=== PATIENT | female | born 1975 | race Caucasian/White ===

== ENCOUNTER 2019-08-09 11:52 | Outpatient (REF) | payer SELFPAY ==
[2019-08-09 12:24] LABS: Cholesterol 207 mg/dL (0-200); Glucose 107 mg/dL (65-115); HDL Cholesterol 46 mg/dL (60-100); LDL Cholesterol Calculated 131 mg/dL (50-129); LDL HDL Ratio 2.85 RATIO (0.00-3.22); Triglycerides 151 mg/dL (0-150)
[2019-08-09 13:01] LABS: Estmated Average Glucose 108; Hemoglobin A1C 5.4 % (4.0-6.0)
== END 2019-08-09 11:53 | disposition home or self-care (01) ==
LOC: LAB 11:52
PROVIDERS: Family Provider Family Medicine
DX: Z01.89 Encounter for other specified special examinations (principal)
CPT/HCPCS: 80061; 82947; 83036

== ENCOUNTER 2021-01-21 08:17 | Outpatient (CLI) | payer OTHER, SELFPAY ==
--- NOTE | 2021-01-21 08:24 | MM_ITS ---
WS: [id number] BILATERAL DIGITAL SCREENING MAMMOGRAPHY WITH CAD CLINICAL INFORMATION: SCREENING HISTORY: Screening mammogram. No current complaints. COMPARISON: TECHNIQUE: Bilateral CC and MLO views. FINDINGS: Scattered fibroglandular densities bilaterally. No suspicious focal mass, asymmetry, calcifications, or architectural distortion. No evidence of malignancy. Lucent centered calcification right breast. I ncidental intramammary lymph node right breast. MM/[place] [id number] IMPRESSION: BI-RADS: 2-Benign FOLLOW UP: 1 Year Follow-up Recommend return to annual screening mammography.
== END 2021-01-21 08:18 | disposition home or self-care (01) ==
LOC: RADSHAW 08:20
PROVIDERS: PCP Nurse Practitioner Family; Visit Provider Nurse Practitioner Family
DX: Z12.31 Encounter for screening mammogram for malignant neoplasm of breast (principal)
CPT/HCPCS: 77067

== ENCOUNTER 2022-01-29 11:26 | Outpatient (CLI) | payer OTHER, SELFPAY ==
--- NOTE | 2022-01-29 11:35 | MM_ITS ---
WS: [id number] Exam: [id number] Date/Time of Exam: 01/29/2022 11:35 AM Reason For Exam: SCREENING VIEWS: MLO and CC views both breasts. 3D digital tomosynthesis is also included in this exam. Comparison made with prior exam of 02/04/2009, 03/29/2018, 10/10/2018, 01/21/2021.. Findings: There was no sign of mass, architectural distortion or suspicious calcification in either breast. MM/[place] [id number] Impression: BI-RADS: 2-Benign FOLLOW-UP: 1 Year Follow-up This mammogram was also analyzed by the Computer Aided Detection System R2 Imag e News Wire Photo Operator.
== END 2022-01-29 11:27 | disposition home or self-care (01) ==
LOC: RAD 11:28
PROVIDERS: PCP Nurse Practitioner Family; Visit Provider Nurse Practitioner Family
DX: Z12.31 Encounter for screening mammogram for malignant neoplasm of breast (principal)
CPT/HCPCS: 77063; 77067

== ENCOUNTER 2023-01-31 07:26 | Outpatient (CLI) | payer OTHER, BC, SELFPAY ==
--- NOTE | 2023-01-31 07:44 | MM_ITS ---
WS: [id number] SCREENING DIGITAL TOMOSYNTHESIS MAMMOGRAM WITH CAD HISTORY: SCREENING COMPARISON: 01/29/2022, 01/21/2021 Bilateral CC and MLO with tomosynthesis views submitted. Synthetic mammography reviewed. Computer aid ed detection analyzed. Breast composition: There are scattered areas of fibroglandular density. No suspicious masses, microc alcifications or architectural distortion. Benign intramammary lymph node RIGHT axillary tail. MM/[place] [id number] IMPRESSION: BI-RADS: 2-Benign FOLLOW UP: 1 Year Follow-up
== END 2023-01-31 07:27 | disposition home or self-care (01) ==
PROVIDERS: PCP Nurse Practitioner Family; Visit Provider Nurse Practitioner Family
DX: Z12.31 Encounter for screening mammogram for malignant neoplasm of breast (principal)
CPT/HCPCS: 77063; 77067

== ENCOUNTER 2023-11-07 08:43 | Emergency (ER) | payer BC, SELFPAY ==
[2023-11-07] VITALS (45 sets, daily range): BP systolic 120–155; BP diastolic 79–97; PULSE 76–108; RESP 12–30; TEMP 37.3; O2SAT 91–98; BMI 47.7
--- NOTE | 2023-11-07 09:09 | ECG_ITS ---
[facility] Test Date: 2023-11-07 Pat Name: Karoline Gaines Department: Room: Gender: Female Appeals Manager: : 1975 Requested By: Conor Cruz Order Number: [id number] Ayan MD: Boogie Viera M.D. Measurements Intervals [place] Rate: 103 P: 59 MN: 178 QRS: 59 QRSD: 109 T: 74 QT: 340 QTc: 446 Interpretive Statements SINUS TACHYCARDIA INCOMPLETE RIGHT BUNDLE BRANCH BLOCK [90+ ms QRS DURATION, TERMINAL R IN V1/V2, 40+ ms S IN I/aVL/V4/V5/V6] ABNORMAL RHYTHM ECG No previous ECG available for comparison Electronically Signed On 11-07-2023 10:54:17 CDT by Boogie Viera M.D. [email or web address] [email or web address] Companytallahat[facility] hospitalSt[facility].[employer]/store/NU/[id number] f
--- NOTE | 2023-11-07 09:13 | ED_ITS ---
HPI - Dizziness 2 General: Chief Complaint: Dizziness Stated Complaint: chest pain, dizzy, N Time Seen by Provider: 11/07/23 08:50 Source: patient Mode of arrival: ambulatory History of Present Illness: HPI Narrative: 48-year-old female presents emergency ro om complaining getting dizziness headache and some chest discomfort shortly after arriving at work. She can reproduce the dizziness by turning her head to the right or tipping her head back. She has had this in the past as well. No recent head trauma or falls no chest pain at this time. Previous episode associated with an ear infection MD elicited complaint: dizziness Onset (ago): minute(s) Description: room spinning Context: change in body position (Moving head to the right or tipping head back) Exacerbating factors: change in body position Associated symptoms: Reports chest pain, headache(s) and malaise; Denies change in hearing, chills, cough, diaphoresis, ear discharge, ear pressure, fevers/chills, nausea, nasal congestion, palpitations, rash, short of breath, syncope, tinnitus, vomiting or weakness Review of Systems 2 Const: Reports: malaise; Denies: fever(s), chills or diaphoresis ENMT: Denies: ear discharge, change in hearing, tinnitus or nasal congestion Card: Reports: chest pain; Denies: palpitations or syncope Resp: Denies: dyspnea GI: Denies: abdominal pain, nausea or vomiting : Denies: dysuria, urinary frequency or urinary urgency Musc: Denies: neck pain or back pain Skin/Breast: Denies: rash Neuro: Reports: headache(s) and dizziness Physical Exam 2 Const: COMMON NORMALS: no acute distress GENERAL APPEARANCE: cooperative and comfortable ORIENTATION/CONSCIOUSNESS: Yes awake, Yes oriented to person, Yes oriented to place and Yes oriented to time HENMT: COMMON NORMALS: normocephalic, atraumatic and hearing grossly normal bilaterally HEAD & SCALP: normocephalic and atraumatic Resp: COMMON NORMALS: normal respiratory effort, No retractions, No use of accessory muscles and clear to auscultation bilaterally AUSCULTATION: clear to auscultation bilaterally Cardio: COMMON NORMALS: regular rate, regular rhythm and No murmurs present (Cardio) RATE: regular rate RHYTHM: regular rhythm GI: COMMON NORMALS: Soft to palpation and No hepatosplenomegaly present A USCULTATION: Yes normoactive bowel sounds PALPATION: Yes Soft to palpation, No Tenderness to palpation present (GI), No Guarding due to palpation present (GI) and Yes No hepatosplenomegaly present Extremity: COMMON NORMALS: normal to inspection, capillary refill normal, no clubbing, cyanosis or edema, no calf tenderness and no pedal edema Neuro: SENSORIUM/ORIENTATION: Yes oriented to person, Yes oriented to place and Yes oriented to time Skin: COMMON NORMALS: no rashes or lesions noted GENERAL SKIN EXAM: no rashes or lesions noted Course 2 Vital Signs: Vital signs: Vital Signs Temperature 99.2 F 11/07/23 08:50 Pulse Rate 79 11/07/23 12:40 Respiratory Rate 20 H 11/07/23 11:10 Blood Pressure 154/89 11/07/23 12:40 Pulse Oximetry 95 11/07/23 12:40 Oxygen Delivery Me thod Room Air 11/07/23 12:40 MDM - Dizziness Medical Decision Making Cardiac enzymes unremarkable EKG shows no acute changes. Symptoms reproducible with extension at the neck or rotation to the right. Somewhat improved from when she first arrived. Will discharge patient home with meclizine to use as needed if symptoms persist follow-up with primary care. Medical Records I reviewed the patient's medical records. Lab Data I reviewed the patient's lab results. 11/07/23 09:05 11/07/23 09:05 Laboratory Results WBC 11.36 10^3/uL (3.29-11.43) 11/07/23 09:05 RBC 5.00 10^6/uL (3.85-5.65) 11/07/23 09:05 Hgb 14.30 g/dL (11.27-16.99) 11/07/23 09:05 Hct 43.3 % (36-47) 11/07/23 09:05 MCV 86.6 fl (85-98) 11/07/23 09:05 MCH 28.6 pg (27-33) 11/07/23 09:05 MCHC 33.0 g/dL (30-55) 11/07/23 09:05 RDW 13.6 % (12.1-15.1) 11/07/23 09:05 Plt Count 271 10^3/cmm (157-399) 11/07/23 09:05 MPV 10.0 fL (7.4-10.4) 11/07/23 09:05 Neut % (Auto) 64.5 % 11/07/23 09:05 Lymph % (Auto) 26.1 % 11/07/23 09:05 Rogers % (Auto) 5.5 % 11/07/23 09:05 Eos % (Auto) 3.0 % 11/07/23 09:05 Baso % (Auto) 0.4 % 11/07/23 09:05 Neut # (Auto) 7.33 10^3/uL (1.8-7.7) 11/07/23 09:05 Lymph # (Auto) 3.0 10^3/uL (0.8-4.8) 11/07/23 09:05 Rogers # (Auto) 0.6 10^3/uL (0.2-0.9) 11/07/23 09:05 Eos # (Auto) 0.3 10^3/uL (0.0-0.8) 11/07/23 09:05 Baso # (Auto) 0.1 10^3/uL (0.0-0.1) 11/07/23 09:05 Nucleated RBC % (auto) 0 % 11/07/23 09:05 Nucleated RBCs # 0.0 /100WBC 11/07/23 09:05 Sodium 138 mmol/L (136-145) 11/07/23 09:05 Potassium 3.4 mmol/L (3.5-5.1) L 11/07/23 09:05 Chloride 101 mmol/L (98-107) 11/07/23 09:05 Carbon Dioxide 25 mmol/L (22-29) 11/07/23 09:05 Anion Gap 15.4 (5-19) 11/07/23 09:05 BUN 14 mg/dL (6-20) 11/07/23 09:05 Creatinine 0.7 mg/dL (0.5-0.9) 11/07/23 09:05 GFR Calculation 89.3 mL/min (90-130) L 11/07/23 09:05 Glucose 106 mg/dL (65-115) 11/07/23 09:05 Calculated Osmolality 287 mOsm/kg (285-295) 11/07/23 09:05 Calcium 9.2 mg/dL (8.5-10.5) 11/07/23 09:05 Total Bilirubin 0.2 mg/dL (0.15-1.2) 11/07/23 09:05 AST 12 U/L (0-32) 11/07/23 09:05 ALT 15 U/L (0-33) 11/07/23 09:05 Alkaline Phosphatase 73 U/L (35-105) 11/07/23 09:05 Troponin T Baseline < 6 ng/L (0-10) 11/07/23 09:05 Troponin T 120 Minute 7.32 ng/L (0-10) 11/07/23 10:40 Delta Troponin T 1.04194 ABS# (0-10) 11/07/23 10:40 Total Protein 6.8 g/dL (6.6-8.7) 11/07/23 09:05 Albumin 3.9 g/dL (3.5-5.2) 11/07/23 09:05 Globulin 2.9 g/dL (1.3-4.6) 11/07/23 09:05 Lipase 30 U/L (13-60) 11/07/23 09:05 Urine Color Straw (Yellow) 11/07/23 07:26 Urine Appearance Hazy (CLEAR) A 11/07/23 07:26 Urine pH 5 (5-7) 11/07/23 07:26 Ur Specific [place] 1.010 (1.005-1.030) 11/07/23 07:26 Urine Protein Neg (Negative) 11/07/23 07:26 Urine Glucose (UA) Norm (Normal) 11/07/23 07:26 Urine Ketones Negative (Negative) 11/07/23 07:26 Urine Blood Neg (Negative) 11/07/23 07:26 Urine Nitrate Negative (Negative) 11/07/23 07:26 Urine Bilirubin Neg (Negative) 11/07/23 07:26 Urine Urobilinogen Norm mg/dL (Negative) 11/07/23 07:26 Ur Leukocyte Esterase Negative (Negative) 11/07/23 07:26 Urine RBC None /hpf (0-2) 11/07/23 07:26 Urine WBC 0-4 /hpf (0-5) H 11/07/23 07:26 Ur Squamous Epith Cells 0-4 /hpf (0-5) H 11/07/23 07:26 Amorphous Sediment Not Reportable 11/07/23 07:26 Urine Bacteria 1+ /hpf (NONE) H 11/07/23 07:26 No radiology studies performed this visit Discharge Plan Discharge Patient Disposition: Home Clinical Impression: Benign paroxysmal positional vertigo Condition: Stable Prescriptions: New meclizine 25 mg tablet 25 mg PO QID PRN (Reason: dizziness) Qty: 20 0RF No Action multivitamin Tablet 1 tab PO QAM Zyrtec 10 mg Tablet 10 mg PO QAM lisinopril-hydrochlorothiazide 20-25 mg tablet 1 tab PO QAM Discharge Orders: Discharge ED (Routine); Ordered 11/07/23 Ordered By: Conor Hope Referrals: Justyna Jackson FNP [Primary Care Provider] - Discharge Diet: Usual diet Discharge Activity: Increase activity as tolerated Patient Instructions: Benign Paroxysmal Positional Vertigo (ED), Opioid Safety, Pain Management Activity Restrictions/Additional Instructions: Thank you for choosing [facility] for your healthcare needs today. Please realize this is an emergency room and that we are providing you with a medical screening exam and this may not be complete and all inclusive of all the testing and or work up that you may need to determine your ailment or severity of your illness. It is very important that you follow up as instructed or that you return to the Emergency Department should you have concerns or if your condition changes or worsens in any way. Follow-up with your primary care doctor as needed Coding Level of Care Code ED Aquatic Physiotherapist for Trae Angeles
[2023-11-07 09:16] LABS: Basophils # 0.1 10^3/uL (0.0-0.1); Basophils % 0.4 %; Eosinophils # 0.3 10^3/uL (0.0-0.8); Hematocrit 43.3 % (36-47); Lymphocytes % 26.1 %; Mean Corpuscular Hemoglobin 28.6 pg (27-33); Mean Corpuscular Volume 86.6 fl (85-98); Monocytes # 0.6 10^3/uL (0.2-0.9); Monocytes % 5.5 %; Neutrophils # 7.33 10^3/uL (1.8-7.7); Neutrophils % 64.5 %; Nucleated Red Blood Cells % 0 %; Platelet Count 271 10^3/cmm (157-399); Red Cell Distribution Width 13.6 % (12.1-15.1); White Blood Count 11.36 10^3/uL (3.29-11.43)
[2023-11-07] MEDS: aspirin 81 mg Chew Tablet 324 MG PO (09:20)
[2023-11-07 09:32] LABS: Alanine Aminotransferase 15 U/L (0-33); Albumin Level 3.9 g/dL (3.5-5.2); Alkaline Phosphatase 73 U/L (35-105); Anion Gap 15.4 (5-19); Aspartate Amino Transferase 12 U/L (0-32); Blood Urea Nitrogen 14 mg/dL (6-20); Calcium 9.2 mg/dL (8.5-10.5); Carbon Dioxide 25 mmol/L (22-29); Chloride 101 mmol/L (98-107); Creatinine Clr Calc Pharmacy 147.8836; Globulin 2.9 g/dL (1.3-4.6); Glomerular Filtration Rate 89.3 mL/min (90-130); Glucose 106 mg/dL (65-115); Lipase 30 U/L (13-60); Osmolality Calculated 287 mOsm/kg (285-295); Potassium 3.4 mmol/L (3.5-5.1); Sodium 138 mmol/L (136-145); Total Bilirubin 0.2 mg/dL (0.15-1.2); Total Protein 6.8 g/dL (6.6-8.7); Troponin(5th) Baseline < 6 ng/L (0-10)
[2023-11-07 10:28] LABS: Urine Appearance Hazy (CLEAR); Urine Color Straw (Yellow)
[2023-11-07 10:29] LABS: Add Urine Microscopic? YES; Bacteria Urine 1+ /hpf; Bilirubin Urine Neg (Negative); Blood Urine Neg (Negative); Glucose Urine UA Norm (Normal); Ketones Urine Negative (Negative); Leukocyte Esterase Urine Negative (Negative); Nitrate Urine Negative (Negative); Protein Urine Neg (Negative); Squamous Epithelial Cell Urine 0-4 /hpf (0-5); Urobilinogen Urine Norm (Negative); WBC Urine 0-4 /hpf (0-5); pH Urine 5 (5-7)
[2023-11-07 10:31] LABS: Add Urine Culture? No
--- NOTE | 2023-11-07 10:35 | PC.PHAR ---
pt states she takes care of her own medications-pt states she hasnt taken montelukast 10mg daily for a month ext shows last filled 08/02/23
--- NOTE | 2023-11-07 11:10 | ECG_ITS ---
[facility] Test Date: 2023-11-07 Pat Name: Karoline Gaines Department: Room: Gender: Female Java Swing Developer: : 1975 Requested By: Conor Cruz Order Number: [id number] Ayan MD: Boogie Viera M.D. Measurements Intervals [place] Rate: 78 P: 61 NC: 172 QRS: 47 QRSD: 101 T: 64 QT: 368 QTc: 421 Interpretive Statements SINUS RHYTHM POSSIBLE RIGHT VENTRICULAR CONDUCTION DELAY [RSR (QR) IN V1/V2] Compared to ECG 11/07/2023 08:50:09 Sinus tachycardia no longer present Incomplete right bundle-branch block no longer present Electronically Signed On 11-07-2023 23:25:23 CDT by Boogie Viera M.D. [email or web address]/store/[id number]
[2023-11-07] MEDS: meclizine 25 mg tablet PO (11:54)
[2023-11-07 12:03] LABS: Troponin 5 2HR 7.32 ng/L (0-10); Troponin 5 2HR Delta 1.32001 ABS# (0-10)
== END 2023-11-07 12:46 | disposition home or self-care (01) ==
PROVIDERS: Emergency Provider Family Medicine; PCP Nurse Practitioner Family
DX: H81.10 Benign paroxysmal vertigo, unspecified ear (principal)
CPT/HCPCS: 80053; 81001; 83690; 84484; 85025; 93005; 99284; J8597

== ENCOUNTER 2024-03-29 09:51 | Outpatient (CLI) | payer BC, SELFPAY ==
--- NOTE | 2024-03-29 09:53 | MM_ITS ---
WS: [id number] Bilateral screening 3D tomosynthesis digital mammogram, 03/29/2024 9:58 AM Clinical Data: SCREENING Comparison: 01/31/2023, 01/29/2022, 01/21/2021, 03/07/2019, 03/29/2018, 05/14/2009, 02/04/2009. Findings: No spiculated masses or clustered calcifications are seen. There are no secondary signs of carcinoma . There is scattered fibroglandular tissue. There are lymph nodes in both axilla. MM/MM [facility] tomosynthesis [id number] Impression: Negative bilateral mammogram unchanged. Recommend annual screening mammograms. BIRADS: 1 - Negative. FOLLOW UP: 1 Year Follow-up DENSITY: There are scattered areas of fibroglandular density. The CAD dead mail checker was used
== END 2024-03-29 09:52 | disposition home or self-care (01) ==
LOC: RAD 09:52
PROVIDERS: PCP Nurse Practitioner Family; Visit Provider Nurse Practitioner Family
DX: Z12.31 Encounter for screening mammogram for malignant neoplasm of breast (principal); R92.323 Mammographic fibroglandular density, bilateral breasts
CPT/HCPCS: 77063; 77067

== ENCOUNTER 2025-04-01 08:13 | Outpatient (CLI) | payer BC, SELFPAY ==
--- NOTE | 2025-04-01 08:20 | MM_ITS ---
WS: [id number] BILATERAL SCREENING DIGITAL TOMOSYNTHESIS MAMMOGRAM WITH CAD HISTORY: SCREENING COMPARISON: 03/29/2024, 01/31/2023, 01/29/2022 Bilateral CC and MLO views with tomosynthesis and synthetic mammography submitted. Computer aided detection analyzed. Breast composition: There are scattered areas of fibroglandular density. No suspicious masses, microcalcifications or architectural distortion. Benign calcifications. No suspicious grouping of calcification. MM/MM scr tomosynthesis [id number] IMPRESSION: BI-RADS: 2 - Benign. FOLLOW UP: 1 Year Follow-up
== END 2025-04-01 08:14 | disposition home or self-care (01) ==
LOC: RAD 08:14
PROVIDERS: PCP Nurse Practitioner Family; Visit Provider Nurse Practitioner Family
DX: Z12.31 Encounter for screening mammogram for malignant neoplasm of breast (principal); R92.323 Mammographic fibroglandular density, bilateral breasts; R92.1 Mammographic calcification found on diagnostic imaging of breast
CPT/HCPCS: 77063; 77067

== ENCOUNTER 2025-06-14 15:31 | Emergency (ER) | payer BC, SELFPAY ==
--- NOTE | 2025-06-14 15:36 | ECG_ITS ---
[facility] Test Date: 2025-06-14 Pat Name: Karoline Gaines Department: Room: Gender: Female Sketch Liner: : 1975 Requested By: Mary Carmen Cruz Order Number: [id number] Ayan MD: RICAHRD INGRAM Measurements Intervals [place] Rate: 112 P: 59 [place]: 152 QRS: 63 QRSD: 108 T: 72 QT: 321 QTc: 440 Interpretive Statements SINUS TACHYCARDIA INCOMPLETE RIGHT BUNDLE BRANCH BLOCK [90+ ms QRS DURATION, TERMINAL R IN V1/V2, 40+ ms S IN I/aVL/V4/V5/V6] ABNORMAL RHYTHM ECG Compared to ECG 11/07/2023 11:10:45 Incomplete right bundle-branch block now present Sinus rhythm no longer present Electronically Signed On 06-14-2025 18:28:42 REFRIGERATION MANAGER by RICHARD INGRAM [id number]
[2025-06-14 15:40] VITALS: BP 184/90; PULSE 109; RESP 16; TEMP 37.4; O2SAT 98; BMI 49.6
--- NOTE | 2025-06-14 15:45 | ECG_ITS ---
[facility] Test Date: 2025-06-14 Pat Name: Karoline Gaines Department: Room: Gender: Female Theater Set Production Designer: : 1975 Requested By: Mary Carmen Cruz Order Number: [id number] Ayan MD: RICHARD INGRAM Measurements Intervals [place] Rate: 112 P: 59 [place]: 152 QRS: 63 QRSD: 108 T: 72 QT: 321 QTc: 440 Interpretive Statements SINUS TACHYCARDIA INCOMPLETE RIGHT BUNDLE BRANCH BLOCK [90+ ms QRS DURATION, TERMINAL R IN V1/V2, 40+ ms S IN I/aVL/V4/V5/V6] ABNORMAL RHYTHM ECG Compared to ECG 11/07/2023 11:10:45 Incomplete right bundle-branch block now present Sinus rhythm no longer present Electronically Signed On 06-14-2025 18:28:39 BITUMINOUS PAVING MACHINE OPERATOR by RICHARD INGRAM [id number]
--- NOTE | 2025-06-14 16:15 | XRR_ITS ---
PROCEDURE INFORMATION: Exam: XR Chest Exam date and time: 06/14/2025 4:22 PM Age: 50 years old Clinical indication: Pain; Angina pectoris; Additional info: Chest pain TECHNIQUE: Imaging protocol: Radiologic exam of the chest. Views: 1 view. COMPARISON: CR XR chest 2V* [id number] 08/25/2021 4:44 PM FINDINGS: Lungs: No infiltrates. No suspicious masses or nodules. Pleural spaces: No pleural effusions or pneumothorax. Heart/Mediastinum: Heart size within normal limits. No pulmonary vascular congestion. Bones/joints: No significant osseous lesion. No fractures. XR/XR chest 1V portable [id number] IMPRESSION: No acute cardiopulmonary findings radiographically.
--- NOTE | 2025-06-14 17:04 | ED_ITS ---
HPI - Chest Pain 2 General: Chief Complaint: Chest Pain Stated Complaint: chest pain Time Seen by Provider: 06/14/25 16:45 History of Present Illness: Patient is 50-year-old female with history of hypertension, presents to the emergency room with chest pain/discomfort. Context: Patient did take her lisinopril/hydrochlorothiazide this a.m. She went to lunch with her friend approximately 1230. Approximately 2 PM, she started having chest pressure/discomfort in the central and left area of her chest associated with shortness of breath, and hard to get her breath. She has associated symptoms of palpitations. Heart rate in the ED is 109?112. EKG shows sinus tachycardia without ST segment elevation. She is did not have any diaphoresis, nausea, vomiting. She does have a history of ongoing sinusitis that is treated with its third round of antibiotics, the third round that she received today from [facility]. Other than this, she has not had any upper respiratory or shortness of breath symptoms. She believes her shortness of breath was associated with the chest discomfort. She was standing and talking to her friend at the time and occurred today. She does not currently have any active chest discomfort. She denies any previous history of cardiac event, and has not had a stress test. Associated symptoms: Reports dyspnea; Deny abdominal pain, diaphoresis, fever(s), nausea, palpitations, syncope or vomiting Related Data Home Medications ?Medication ?Instructions ?Recorded ?Confirmed cetirizine 10 mg tablet (Zyrtec) 10 mg PO QAM 11/07/23 11/07/23 lisinopril 20 1 tab PO QAM 11/07/23 mg-hydrochlorothiazide 25 mg tablet multivitamin 1 tab PO QAM 11/07/23 Previous Rx's ?Medication ?Instructions ?Recorded meclizine 25 mg tablet 25 mg PO QID PRN dizziness # 20 tabs 11/07/23 Allergies Allergy/AdvReac Type Severity Reaction Status Date / Time acetaminophen (From Tylenol) Allergy ALGY-Hives Verified 06/14/25 15:46 Cephalosporins Allergy Unknown Verified 11/07/23 08:58 morphine Allergy ADR-Vomitin Verified 11/07/23 08:56 g Penicillins Allergy Unknown Verified 11/07/23 10:34 Review of Systems 2 Const: Reports: malaise; Denies: fever(s), chills or diaphoresis ENMT: Reports: sinus pain (Addressed by Giles Grossman earlier today); Denies: throat pain, ear discharge, change in hearing, tinnitus or nasal congestion Card: Reports: chest pain; Denies: palpitations or syncope Resp: Reports: dyspnea; Denies: non-productive cough GI: Denies: abdominal pain, nausea or vomiting : Denies: dysuria, urinary frequency or urinary urgency Musc: Denies: neck pain or back pain Skin/Breast: Denies: rash Neuro: Reports: headache(s) and dizziness PFSH ED 2 PFSH: Social History Smoking and tobacco/nicotine status: never used tobacco/nicotine Physical Exam 2 Const: COMMON NORMALS: no acute distress GENERAL APPEARANCE: cooperative and comfortable ORIENTATION/CONSCIOUSNESS: Yes awake, Yes oriented to person, Yes oriented to place and Yes oriented to time HENMT: COMMON NORMALS: normocephalic, atraumatic and hearing grossly normal bilaterally HEAD & SCALP: normocephalic and atraumatic Resp: COMMON NORMALS: normal respiratory effort, No retractions, No use of accessory muscles and clear to auscultation bilaterally AUSCULTATION: clear to auscultation bilaterally Cardio: COMMON NORMALS: regular rate, regular rhythm and No murmurs present (Cardio) RATE: regular rate RHYTHM: regular rhythm GI: COMMON NORMALS: Soft to palpation and No hepatosplenomegaly present A USCULTATION: Yes normoactive bowel sounds PALPATION: Yes Soft to palpation, No Tenderness to palpation present (GI), No Guarding due to palpation present (GI) and Yes No hepatosplenomegaly present Extremity: COMMON NORMALS: normal to inspection, capillary refill normal, no clubbing, cyanosis or edema, no calf tenderness and no pedal edema Neuro: SENSORIUM/ORIENTATION: Yes oriented to person, Yes oriented to place and Yes oriented to time Skin: COMMON NORMALS: no rashes or lesions noted GENERAL SKIN EXAM: no rashes or lesions noted Course 2 Vital Signs: Vital signs: Vital Signs Temperature 99.3 F 06/14/25 15:40 Pulse Rate 109 H 06/14/25 18:17 Respiratory Rate 17 06/14/25 18:17 Blood Pressure 165/94 06/14/25 18:17 Pulse Oximetry 95 06/14/25 18:17 Oxygen Delivery Me thod Room Air 06/14/25 15:40 MDM - Chest Pain Medical Decision Making 50-year-old female that presents to the emergency room with chest pressure in her left side of her chest, and central chest. This was associated with shortness of breath. Initial rule out after this occurred over 2 hours was negative. I do believe patient has significant risk factors. Creatinine is mildly elevated at 1.0 with baseline 0.7. Her palpitations could be a result of mild dehydration. She did have tea for lunch. However given her risk factors, father at age 50 with LA, mom was at age 70 with LA, status post hysterectomy, I will refer her to cardiology for ischemic rule out. Differential Diagnosis Likely acute myocardial infarction Medical Records I reviewed the patient's medical records. Lab Data I reviewed the patient's lab results. 06/14/25 16:55 06/14/25 16:55 Radiology Impressions Chest X-Ray 06/14/25 16:15 IMPRESSION: No acute cardiopulmonary findings radiographically. Laboratory Results WBC 13.54 10^3/uL (3.29-11.43) H 06/14/25 16:55 RBC 5.01 10^6/uL (3.85-5.65) 06/14/25 16:55 Hgb 13.60 g/dL (11.27-16.99) 06/14/25 16:55 Hct 42.9 % (36-47) 06/14/25 16:55 MCV 85.6 fl (85-98) 06/14/25 16:55 MCH 27.1 pg (27-33) 06/14/25 16:55 MCHC 31.7 g/dL (30-55) 06/14/25 16:55 RDW 13.8 % (12.1-15.1) 06/14/25 16:55 Plt Count 304 10^3/cmm (157-399) 06/14/25 16:55 MPV 9.9 fL (7.4-10.4) 06/14/25 16:55 Neut % (Auto) 71.4 % 06/14/25 16:55 Lymph % (Auto) 19.4 % 06/14/25 16:55 [place] % (Auto) 6.5 % 06/14/25 16:55 Eos % (Auto) 1.9 % 06/14/25 16:55 Baso % (Auto) 0.4 % 06/14/25 16:55 Neut # (Auto) 9.66 10^3/uL (1.8-7.7) H 06/14/25 16:55 Lymph # (Auto) 2.6 10^3/uL (0.8-4.8) 06/14/25 16:55 [place] # (Auto) 0.9 10^3/uL (0.2-0.9) 06/14/25 16:55 Eos # (Auto) 0.3 10^3/uL (0.0-0.8) 06/14/25 16:55 Baso # (Auto) 0.1 10^3/uL (0.0-0.1) 06/14/25 16:55 Nucleated RBC % (auto) 0 % 06/14/25 16:55 Nucleated RBCs # 0.0 /100WBC 06/14/25 16:55 PT 12.50 SECONDS (12.1-14.9) 06/14/25 16:55 INR 0.87 (0.8-1.2) 06/14/25 16:55 Sodium 141 mmol/L (136-145) 06/14/25 16:55 Potassium 3.9 mmol/L (3.5-5.1) 06/14/25 16:55 Chloride 102 mmol/L (98-107) 06/14/25 16:55 Carbon Dioxide 28 mmol/L (22-29) 06/14/25 16:55 Anion Gap 14.9 (5-19) 06/14/25 16:55 BUN 13 mg/dL (6-20) 06/14/25 16:55 Creatinine 1.0 mg/dL (0.5-0.9) H 06/14/25 16:55 GFR Calculation 58.7 mL/min (90-130) L 06/14/25 16:55 Glucose 109 mg/dL (65-115) 06/14/25 16:55 Calculated Osmolality 293 mOsm/kg (285-295) 06/14/25 16:55 Calcium 9.1 mg/dL (8.5-10.5) 06/14/25 16:55 Magnesium 2.0 mg/dL (1.7-2.3) 06/14/25 16:55 Total Bilirubin 0.2 mg/dL (0.15-1.2) 06/14/25 16:55 AST 14 U/L (0-32) 06/14/25 16:55 ALT 19 U/L (0-33) 06/14/25 16:55 Alkaline Phosphatase 93 U/L (35-105) 06/14/25 16:55 Troponin T Baseline 7 ng/L (0-10) 06/14/25 16:55 Total Protein 6.7 g/dL (6.6-8.7) 06/14/25 16:55 Albumin 4.3 g/dL (3.5-5.2) 06/14/25 16:55 Globulin 2.4 g/dL (1.3-4.6) 06/14/25 16:55 TSH 2.83 uIU/mL (0.27-4.20) 06/14/25 16:55 All radiology interpretation(s) finalized by discharge EKG Data EKG 1: Interpretation: Sinus tachycardia rate of 102, normal axis, no ST segment elevation, QTc 390 Discharge Plan Discharge Patient Disposition: Home Clinical Impression: Chest pain, non-cardiac, Elevated troponin Condition: Stable Prescriptions: No Action multivitamin Tablet 1 tab PO QAM Zyrtec 10 mg Tablet 10 mg PO QAM lisinopril-hydrochlorothiazide 20-25 mg tablet 1 tab PO QAM meclizine 25 mg tablet 25 mg PO QID PRN (Reason: dizziness) Qty: 20 0RF Discharge Orders: Discharge ED (Routine); Ordered 06/14/25 Ordered By: Kitty Chaudhari Referrals: Justyna Jackson FNP [Primary Care Provider, Unknown] Nino Taylor MD [Physician, Cardiology] Discharge Diet: Low Salt Patient Instructions: Dehydration (ED), Noncardiac Chest Pain (ED), Patient Portal & Tala Instructions Activity Restrictions/Additional Instructions: - Drink an extra liter of noncaffeinated beverage in the next 2 hours - Cardiology evaluation is being made for follow-up outpatient - Return to ED if you have acute chest pain again - Take a baby coated aspirin for primary prevention while awaiting workup with cardiology Thank you for choosing [facility] for your healthcare needs today. You have been screened and evaluated and felt safe for discharge. Health conditions do change or evolve sometimes and as such it is important that you follow up with your Primary Doctor to be re checked, 3-5 days is a general good time frame for follow up. You are always welcome to return to the ED for re assessment if your symptoms are worsening or you have new concerns Print Language: British Coding Level of Care Code ED Level Vial Inspector And Tester for Chg Fwbritney Heart Score HEART Score Components History: Slightly Suspicous EKG: Normal Age: 45-64 yrs Risk Factors: 1 or 2 Risk Factors Troponin: Baseline Trop <16 ng/L HEART Score RESULT HEART Score: 2
[2025-06-14 17:09] LABS: Hematocrit 42.9 % (36-47); Hemoglobin 13.60 g/dL (11.27-16.99); Mean Corpuscular HGB Conc 31.7 g/dL (30-55); Mean Corpuscular Hemoglobin 27.1 pg (27-33); Mean Corpuscular Volume 85.6 fl (85-98); Nucleated Red Blood Cells % 0 %; Platelet Count 304 10^3/cmm (157-399); Red Blood Count 5.01 10^6/uL (3.85-5.65); White Blood Count 13.54 10^3/uL (3.29-11.43)
[2025-06-14 17:15] VITALS: BP 150/100; PULSE 115; RESP 17; O2SAT 94
[2025-06-14 17:18] LABS: INR 0.87 (0.8-1.2); Prothrombin Time 12.50 SECONDS (12.1-14.9)
--- NOTE | 2025-06-14 17:18 | ECG_ITS ---
[employer] Test Date: 2025-06-14 Pat Name: Karoline Gaines Department: Room: Gender: Female Human Resource Adviser: : 1975 Requested By: Mary Carmen Cruz Order Number: [id number] Ayan MD: RICHARD INGRAM Measurements Intervals [place] Rate: 102 P: 35 WI: 128 QRS: 50 QRSD: 102 T: 61 QT: 332 QTc: 432 Interpretive Statements SINUS TACHYCARDIA INCOMPLETE RIGHT BUNDLE BRANCH BLOCK [90+ ms QRS DURATION, TERMINAL R IN V1/V2, 40+ ms S IN I/aVL/V4/V5/V6] MINIMAL ST DEPRESSION [0.025+ mV ST DEPRESSION] ABNORMAL RHYTHM ECG Compared to ECG 06/14/2025 15:36:19 ST (T wave) deviation now present Electronically Signed On 06-14-2025 18:32:10 PICK UP by RICHARD INGRAM [email or web address]
[2025-06-14 17:26] LABS: Troponin(5th) Baseline 7 ng/L (0-10)
[2025-06-14 17:28] LABS: Alanine Aminotransferase 19 U/L (0-33); Albumin Level 4.3 g/dL (3.5-5.2); Alkaline Phosphatase 93 U/L (35-105); Anion Gap 14.9 (5-19); Aspartate Amino Transferase 14 U/L (0-32); Blood Urea Nitrogen 13 mg/dL (6-20); Calcium 9.1 mg/dL (8.5-10.5); Carbon Dioxide 28 mmol/L (22-29); Chloride 102 mmol/L (98-107); Globulin 2.4 g/dL (1.3-4.6); Glucose 109 mg/dL (65-115); Osmolality Calculated 293 mOsm/kg (285-295); Potassium 3.9 mmol/L (3.5-5.1); Sodium 141 mmol/L (136-145); Total Protein 6.7 g/dL (6.6-8.7)
[2025-06-14 17:30] VITALS: BP 171/91; PULSE 106; RESP 17; O2SAT 97
[2025-06-14 17:30] LABS: Magnesium 2.0 mg/dL (1.7-2.3); Thyroid Stimulating Hormone 2.83 uIU/mL (0.27-4.20)
[2025-06-14 18:17] VITALS: BP 165/94; PULSE 109; RESP 17; O2SAT 95
== END 2025-06-14 18:18 | disposition home or self-care (01) ==
PROVIDERS: Emergency Medicine; Emergency Provider Physician Assistant; PCP Nurse Practitioner Family
DX: R07.89 Other chest pain (principal); R79.89 Other specified abnormal findings of blood chemistry
CPT/HCPCS: 36415; 71045; 80053; 83735; 84443; 84484; 85025; 85610; 93005; 99285; J9999

== ENCOUNTER 2025-06-21 13:45 | Emergency (ER) | payer BC, SELFPAY ==
[2025-06-21 13:45] VITALS: BP 173/96; PULSE 92; RESP 16; TEMP 36.3; O2SAT 100
--- OUTSIDE RECORDS SUMMARY | 2025-06-21 13:49 | XMS_ITS | Clinical Summary ---
Author Organization [facility] Address [address] Banksn: [place] [address] Care Team Providers Care Special Needs Child Caregiver Name Role Phone Floresita Kapoor MD Primary Care Provider [phone] Medications montelukast (SINGULAIR) 10 mg tablet Take 10 mg by mouth daily at bedtime. 08/03/2018 Active lisinopril-hydro CHLOROthiazide (ZESTORETIC) 20-25 mg tablet Take 1 Tablet by mouth daily. 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 Gender Identity Not on file Sexual Orientation Not on file Last Filed Vital Signs Vital Sign Reading Time Taken Comments Blood Pressure 107/75 08/03/2018 9:57 AM MACHINE STONECUTTER Pulse 89 08/03/2018 9:57 AM MACHINE STONECUTTER Temperature - - Respiratory Rate - - Oxygen Saturation - - Inhaled Oxygen Concentration - - Weight 145.2 kg (320 lb) 08/03/2018 9:57 AM MACHINE STONECUTTER Height 172.7 cm (5' 8 ) 08/03/2018 9:57 AM MACHINE STONECUTTER Body Mass Index 48.66 08/03/2018 9:57 AM MACHINE STONECUTTER Plan of Treatment Health Maintenance Due Date Last Done Comments HEPATITIS B VACCINES (1 of 3 - 19+ 3-dose series) 1994 10/11/2000, 05/12/2000, 04/11/2000 HPV/Cotest (21-29) 01/18/1996 DTAP/TDAP/TD VACCINES (1 - Tdap) 11/24/2002 11/24/19 03 CERVICAL CANCER SCREENING 2005 HPV/Cotest (30-65) 2005 PAP SMEAR 2005 BREAST CANCER SCREENING 2015 COLORECTAL SCREENING 01/18/2020 Colorectal Cancer Screening 01/18/2020 FIT-DNA Q 3 years 01/18/2020 FIT/FOBT Q 1 year 01/18/2020 Flex Sig/CT Colonography Q 5 years 01/18/2020 ZOSTER VACCINE (1 of 2) 2025 INFLUENZA VACCINE (#1) 2025 Care Teams Special Needs Child Caregiver Relationship Specialty Start Date End Date Floresita Kapoor MD [address] [place] [address] PCP - General 02/18/06
--- OUTSIDE RECORDS SUMMARY | 2025-06-21 13:49 | XMS_ITS | Encounter Summary ---
Author Organization [facility] Address [address] [place] [address] Care Team Providers Care Road Service Locksmith Name Role Phone Floresita Kapoor MD Primary Care Provider [phone]- [phone] Encounter Details Date Type Department Care Team (Latest Contact Info) Description 02/15/2006 Outpatient Historical [facility] Ear, Nose and Throat 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
--- OUTSIDE RECORDS SUMMARY | 2025-06-21 13:49 | XMS_ITS | Continuity of Care Document ---
Author Organization [facility], LJaswinderLKaren, [facility]) Address [address] [place] [address] Care Team Providers Care Radial Drill Press Set Up Operator Name Role Phone BRADLEY SOFIA Primary Care Provider Unavailabl e Assessment Encounter Date Assessment Date Assessment LastModified by Organization Details LastModified Time 05/22/2025 05/22/2025 Patient here today with a cough that won't go away. She feels like she is rattling in the morning. Not available 05/22/2025 16:26:08 Plan of Treatment Reminders Order Date Submit Date Provider Last Modified By Organization Details Last Modified Time Details Appointments OFFICE VISIT 20 2024 08:40A JOSE MIGUEL ANGULO Not available Not available Not available Lab None recorded. Referral None recorded. Procedures None recorded. Surgeries None recorded. Imaging None recorded. Medication Orders doxycycli ne hyclate 100 mg capsule 2024 025 [facility], [address] [place] [address], [id number], 05/28/2025 05:02:04 prednison e 20 mg tablet 2024 025 [facility], [address] [place] [address], [id number], 05/26/2025 05:01:08 Patient TargetsNo targets recorded. Patient Instructions Encounter Date Encounter Id Patient Instructions Last Modified By Organization Details Last Modified Time 05/22/2025 [id number] Call or return for questions or concerns. Not available 05/22/2025 16:26:30 Reason for Referral None Reported. Problems Name Problem SNOMED Code Status Onset Date Resolution Date Notes Provider Name and Address Organization Details Recorded Time Acne [id number] Completed 201809/05/2018 ADULT ACNE - Status is Inactive ; Recorded 09/06/19 19 9:09AM by Simi Galvez CMT, Sapna on/Adden dum; Promoted ; acuity set as *; Not Available [facility] 3 03:10:30 Acute sinusiti s 72152593 Completed 201809/05/2018 ACUTE BACTERIA L RHINOSIN USITIS - Status is Inactive ; Recorded 09/06/19 19 9:09AM by Simi Galvez CMT, Annotati on/Adden dum; Promoted ; acuity set as *; ACUTE SINUSITI S - Status is Inactive ; Recorded 12/12/19 15 7:35AM by Karoline Zheng LPN, Annotati on/Adden dum; Promoted ; acuity set as *; ; Start Date : 12/12/19 15 Not Available [facility] 3 03:10:31 Bronchit is 60828794 Completed 201809/05/2018 BRONCHIT IS - Status is Inactive ; Recorded 09/06/19 19 9:09AM by Simi Galvez CMT, Annotati on/Adden dum; Promoted ; acuity set as *; Not Available [facility] 3 03:10:31 Allergic rhinitis 19748064 Completed 201809/05/2018 ALLERGIC RHINITIS - Status is Inactive ; Recorded 09/06/19 19 9:09AM by Simi Galvez CMT, Annotati on/Adden dum; Promoted ; acuity set as *; Not Available [facility] 3 03:10:31 Hemorrho ids 37453382 Active 2022 HEMORRHO IDS; Recorded 08/10/19 23 9:06AM by Leonor Cortez LPN, Office Visit; Promoted ; acuity set as *; MARISSA Bernabe [facility], L.L.CJaswinder 4 16:22:08 Exacerba tion of intermit tent asthma 366777830 Active 2022 MILD INTERMIT TENT ASTHMA WITH ACUTE EXACERBA TION; Recorded 08/10/19 23 9:06AM by Leonor Cortez LPN, Office Visit; Promoted ; acuity set as *; SIMI esteban [facility] 4 16:21:59 [facility] hyperten fernanda 73730567 Active 2023 SIMI esteban [facility] 4 16:24:16 Hyperlip idemia 92018566 Active 2023 SIMI esteban [facility], L.L.CJaswinder 4 16:26:20 Gastroes ophageal reflux disease 634268873 Active 2023 SIMI esteban [facility], L.L.CJaswinder 4 16:26:30 Muscle spasm of cervical muscle of neck 30424471697 4 Active 2024 Gilmer Gusman MD [address] [place] [address], [phone] [facility], L.L.CJaswinder 5 10:03:52 Problem Notes None recorded. Procedures Surgical History Date Name Laterality Status Provider Name and Address Organization Details Recorded Time 06/14/20 25 plain X-ray of chest completed SIMI LEONOR [facility], L.L.CJaswinder 06/18/2025 15:01:14 04/05/20 25 screening for malignant neoplasm of colon completed SIMI LEONOR [facility] 04/16/2025 19:30:35 04/01/20 25 screening mammography completed SIMISUNI GALVEZ [facility] 04/02/2025 16:57:44 03/29/20 24 screening mammography completed SIMISUNI GALVEZ [facility] 04/06/2024 10:03:25 02/01/20 23 mammography completed SIMI GALVEZ [facility], L.L.CJaswinder 02/08/2023 13:15:13 08/25/19 22 plain X-ray of chest completed SIMI LEONOR [facility], LJaswinderLJaswinderCJaswinder 12/20/2023 16:27:41 02/11/20 21 screening for malignant neoplasm of colon completed SIMI [facility], LJaswinderL.CJaswinder 12/20/2023 16:38:16 07/04/19 09 Hysterectomy completed BRADLEY SOFIA, [facility] [address] [place], [address], [facility], BennieL.CJaswinder 12/26/2024 13:45:06 Cholecystectomy completed [facility], RoxyCJaswinder 12/07/2022 19:08:56 Imaging Results None recorded. Procedure Notes None recorded. Medical Equipment None Reported. Allergies Allergen ID Allergen Name Allergen Category Reaction Reaction Severity Criticality Documentation Date Start Date Code Code System Note Provider Name and Address Organization Details Recorded Time 60662 trivalent influenza vaccine medicatio n anaphylax is Not available Not available 01/29/2023 74115 9 RxNorm SIMI GALVEZ [facility], BennieLJaswinderCJaswinder 4 16:21:29 62191 diphenhyd ramine / pseudoeph edrine medicatio n Not available Not available Not available 01/29/2023 78888 2 RxNorm SIMI GALVEZ [facility], RoxyCJaswinder 4 16:21:03 68377 penicilli n V potassium medicatio n hives itching swelling severe severe severe Not available 01/29/2023 90857 5 RxNorm SIMI LEONOR [facility], BennieLJaswinderCJaswinder 4 16:21:42 4004 Vaccine product containin g only influenza virus antigen (medicina l product) medicatio n anaphylax is severe Not available 12/07/20222003 29804 82060 105 SNOMED BRADLEY SOFIA, [facility] [address] [place], [address], [facility] 5 10:28:09 4005 Tylenol medicatio n itching rash severe severe Not available 12/07/202270206 3 [facility] 3 19:06:27 4006 Compazine medicatio n other severe Not available 12/07/202260971 6 [facility] L[facility]LJ[facility]winderC. 3 19:06:38 4007 Product containin g penicilli n (product) medicatio n Not available Not available Not available 12/07/2022 34863 8001 SNOMED [facility] LJ[facility]winderLJaswinderCJaswinder 3 11:43:27 4008 cephalexi n medicatio n Not available Not available Not available 12/07/2022 2231 [facility] 3 19:06:59 4009 chlorphen iramine / phenyleph rine medicatio n Not available Not available Not available 12/07/2022 97091 3 RxNorm BRADLEYPatito SOFIA, [address], [address], [facility], LJaswinderLJaswinderC. 5 10:28:09 92941 morphine medicatio n dizziness hives vomiting severe severe severe Not available 05/14/2025 7052 RxNorm BRADLEY SOFIA, [facility] [address] [place], [address], [facility], L.LJaswinderC. 5 10:28:09 Medications Name Sig Start Date Stop Date Status Note LastModified by Organization Details LastModified Time prednison e 10 mg tablet TAKE 1 TABLET BY MOUTH EVERY DAY FOR SEVEN DAYS active Not Available Not Available No t Available doxycycli ne hyclate 100 mg capsule take 1 capsule BY MOUTH TWICE DAILY FOR 10 DAYS active Not Available Not Available No t Available azithromy lorena 250 mg tablet 12/12 /2025 completed Not Available Not Available Not Available prednison e 20 mg tablet Take 2 tablets every day by oral route for 5 days, for asthma/c ough. 05/26 completed Not Available Not Available Not Available Zyrtec 10 mg tablet Take 1 tablet every day by oral route. 08/24 completed Not Available Not Available Not Available metronida zole 500 mg tablet Take 1 tablet twice a day by oral route for 7 days. 02/22 completed Not Available Not Available Not Available triamcino lone acetonide 0.1 % topical cream APPLY TO THE AFFECTED AREA(S) TWICE DAILY 08/24 completed Not Available Not Available Not Available ofloxacin 0.3 % ear drops INSTILL 10 DROPS INTO AFFECTED EAR(S) BY OTIC ROUTE ONCE DAILY X 7 DAYS 12/19 completed Not Available Not Available Not Available meclizine 25 mg tablet TAKE 1 TABLET BY MOUTH FOUR TIMES DAILY NEEDED FOR dizzines s 01/26 completed Not Available Not Available Not Available baclofen 10 mg tablet TAKE 1 TABLET BY MOUTH THREE TIMES DAILY active Not Available Not Available No t Available pantopraz ole 40 mg tablet,de layed release TAKE 1 TABLET BY MOUTH EVERY DAY 2024 active Not Available Not Available Not Avai lable neomycin- polymyxin -dexameth 3.5 mg/mL-10, 000 unit/mL-0 .1% eye drops INSTILL FOUR DROPS IN AFFECTED EAR THREE TIMES DAILY for 7 days FOR EAR PAIN 08/24 completed Not Available Not Available Not Available lisinopri l 20 mg-hydroc hlorothia zide 25 mg tablet TAKE 1 TABLET BY MOUTH EVERY DAY FOR BLOOD PRESSURE FOR 90 DAYS active Not Available Not Available No t Available Pepcid 40 mg tablet 0.5 tablets every day by oral route. 2022 active Not Available Not Available Not Avai lable monteluka st 10 mg tablet TAKE 1 TABLET BY MOUTH EVERY DAY 12/20 completed Not Available Not Available Not Available mupirocin 2 % topical ointment apply a small amount TO THE affected area THREE TIMES DAILY 08/24 completed Not Available Not Available Not Available nystatin 100,000 unit/gram topical powder APPLY TO THE AFFECTED AREA(S) TWICE DAILY active Not Available Not Available No t Available albuterol sulfate HFA 90 mcg/actua tion aerosol inhaler INHALE TWO PUFFS EVERY 4 HOURS NEEDED for 10 days active Not Available Not Available No t Available Cortispor in-TC 3.3 mg-3 mg-10 mg-0.5 mg/mL ear drops,eileen pension Instill 4 drops 3 times a day by otic route for 7 days, for ear pain. 08/24 completed Not Available Not Available Not Available neomycin- polymyxin -hydrocor t 3.5 mg-10,000 unit/mL-1 % ear drops,eileen p INSTILL FOUR DROPS into affected ear THREE TIMES DAILY for 7 days FOR ear pain 01/26 completed Not Available Not Available Not Available Ventolin 90 mcg/actua tion aerosol inhaler two times daily 02/17 completed Recorded 05/22/20 19 2:44PM by JOSE MIGUEL Restrepo, Office Visit; Refill Quantity : 3; Inhalati on; Not Available Not Available Not Available Ciprodex 0.3 %-0.1 % ear drops,eileen pension INSTILL 4 DROPS INTO AFFECTED EAR(S) BY OTIC ROUTE 2 TIMES PER DAY FOR 7 DAYS 11/15 completed Not Available Not Available Not Available lisinopri l-hydroch lorothiaz china daily 02/17 completed Recorded 08/10/19 23 9:45AM by JOSE MIGUEL Restrepo, Office Visit; Refill Quantity : 90; Each; Not Available Not Available Not Available Vitals Date Recorded Body height Body mass index (BMI) Body weight Oxygen saturation Heart rate Respiratory rate Systolic And Diastolic Provider Name and Address Organization Details Last Updated DateTime 5 170.18 cm 51.8 kg/m2 100144. 07 g 97 % 82 /min 20 /min 128/76 mm[Hg] SIMI GALVEZ [facility] 5 15:33:10 Social History Question Answer Notes LastModified by Organizat ion Details LastModified Time Tobacco Smoking Status Never Smoker [facility] 12/07/2022 19:08:20 What Was The Date Of Your Most Recent Tobacco Screening? 06/14/2025 [email or web address] Information not available 06/14/2025 What Is Your Relationship Status? [email or web address] Information not available 12/07/2022 Sex: Unknown Functional Status Question Answer Note LastModified by Organizat ion Details LastModified Time Do you use any illicit or recreational drugs? No [email or web address] Information not available 12/07/2022 What is your level of alcohol consumption? None [email or web address] Information not available 12/07/2022 Are you able to care for yourself independently? Yes [email or web address] Information not available 12/07/2022 Mental Status None recorded. Family History Relationship Description Onset Age of this Age Resolved Age Notes LastModified by Organization Details LastModified Time Maternal Grandmother Malignant neoplasm of lung Not available 2024 10:28:04 Maternal Grandmother Type 2 diabetes mellitus Not available 2024 10:28:04 Maternal Grandmother Essential hypertension 65 84 Not available 05/2025 10:28:04 Mother Type 2 diabetes mellitus [email or web address] Not available 12/19 16:25:31 Mother Essential hypertension [email or web address] Not available 16:25:49 Maternal Grandfather Malignant neoplasm of lung 66 Not available 2024 10:28:04 Father Essential hypertension 50 Not available 05/2025 10:28:04 Medical History Condition Response Coronary Artery Disease N Other N Gout N Kidney Stones N Blood Diseases N Hyperthyroidism N Breast Cancer N Blood Transfusion N Hypothyroidism N Depression N COPD N Lung Disease N Defects or Inherited Disease N Developmental or Behavioral Disorders N Breast Problem N Difficulty Swallowing N Anesthesia Complications N Meniere's disease N Anxiety Disorder N Muscle, Joint, or Bone Problems Y Vision or Eye Problems N Arthritis Y Polyps Y Infertility N Cancer N Varicosities N Stroke N Endometriosis N Bladder or Kidney Problems N High Cholesterol Y Liver Disease N Headaches Y Fibromyalgia N Kidney Disease N Allergies/Hayfever Y Heart Problems N Ear or Hearing Problems Y Fatigue N Hospitalizations N Thyroid Problems N GI Problems N ADD/ADHD N Skin Problems N Eating Disorder N Anemia N Constipation N Mental Illness N Ovarian Cancer N Diabetes N Bedwetting N Seizures/Epilepsy N Tuberculosis N Pain Y Eczema N Diverticulitis N Abuse/Domestic Violence N Asthma Y Reflux/GERD Y Hepatitis N Heart Disease N Pulmonary Embolism N Chronic Ear Infections Y Pre-Eclampsia N Hypertension Y Chicken Pox Y Autism Spectrum Disorder (ASD) N Osteoporosis N Thrombophilias N Gynecological HistoryNo gynecological history recorded. Obstetrics History GPAL:G 0 P 0 0 0 0 Immunizations Vaccine Type Date Status Note Provider Nam e and Address Organization Details Recorded Time Tdap 5 completed SIMI esteban, [facility] 03/20/2025 16:45:08 Tdap 3 completed BRADLEY SOFIA, [address], [address], [facility] 12/08/2022 10:52:59 Td (adult), 2 Lf tetanus toxoid, preservative free, adsorbed 3 leisa SOFIA, [address], [address], [facility] 12/08/2022 10:52:59 Hep B, adult 1 leisa SOFIA [address], [address], [facility] 12/08/2022 10:52:59 Hep B, adult 0 leisa SOFIA, [address], [address], [facility] 12/08/2022 10:52:59 Hep B, adult 0 leisa SOFIA, [address], [address], [facility] 12/08/2022 10:52:59 Hep A, adult 6 leisa SOFIA [facility] [address] [place], [address], [facility], LRaegan 12/08/2022 10:52:59 Hep A, adult 5 completed BRADLEY SOFIA [facility] [address] [place], [address], [facility], LRaegan 12/08/2022 10:52:59 Influenza, split virus, trivalent, preservative 3 completed Not Available [facility] 06/29/2023 08:19:01 Influenza, split virus, trivalent, preservative 7 completed Not Available [facility] 06/29/2023 08:19:01 Past Encounters Encounter ID Performer Location Encounter Start Date Encounter Closed Date Diagnosis/Indication Diagnosis SNOMED-CT Code Diagnosis ICD10 Code Diagnosis IMO Codes Diagnosis Note [id number] BRADLEY SOFIA [facility] ([facility]) [address] [place] [address] 04/30/2025 15:35:49 05/01/2025 11:39:02 Bacterial sinusitis 845898831 J32.9 B96.89 [id number] BRADLEY SOFIA [facility] ([facility]) [address] [place] [address] 05/14/2025 09:35:12 05/14/2025 10:45:18 Gastroesophageal reflux disease 509885161 K21.9 Pantoprazo le as needed now. Bacterial sinusitis 7034 64882 J32.9 B96.89 5322600 [id number] BRADLEY SOFIA [facility] ([facility]) [address] [place] [address] 05/22/2025 14:56:42 05/22/2025 16:30:54 Bronchitis 48495114 J40 86609 Health Concerns Section Related Observation LastModified by Organization Detai ls LastModified Time None Recorded Concern Status LastModified by Organization Details LastModified Time None Recorded Payers Encounter Date Sequence Insurance Name Policy Number Policy Payton Covered Member ID Payton Member ID Guarantor Name 05/22/2025 1 [employer] [id number] Cam Gaines [id number] Karoline Gaines Notes Date Note Type Note Provider Name and Address Organization Details Recorded Time 05/22/2025 text/html Sinusitis/Allerg yRe ported by PatientHPIFor quality, patient reportsdull,congest ed, andthrobbing. For location, patient reportsfrontal. BRADLEY SOFIA [address], [address], [facility] 05/22/2025 16:28:46 OBGyn Episode No OBEpisode recorded.
--- OUTSIDE RECORDS SUMMARY | 2025-06-21 13:49 | XMS_ITS | Clinical Summary ---
Author Organization [facility] Address [address] [place] [address] Phone Care Team Providers Care Tyre Builder Name Role Phone Floresita Kapoor MD Primary Care Provider [phone]- [phone] Medications montelukast (SINGULAIR) 10 mg tablet Take 10 mg by mouth daily at bedtime. Active lisinopril-hydro CHLOROthiazide (ZESTORETIC) 20-25 mg tablet Take 1 Tablet by mouth daily. 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 Gender Identity Not on file Sexual Orientation Not on file Last Filed Vital Signs Vital Sign Reading Time Taken Comments Blood Pressure 107/75 08/03/2018 9:57 AM PLASTIC BUBBLE PACKER Pulse 89 08/03/2018 9:57 AM PLASTIC BUBBLE PACKER Temperature - - Respiratory Rate - - Oxygen Saturation - - Inhaled Oxygen Concentration - - Weight 145.2 kg (320 lb) 08/03/2018 9:57 AM PLASTIC BUBBLE PACKER Height 172.7 cm (5' 8 ) 08/03/2018 9:57 AM PLASTIC BUBBLE PACKER Body Mass Index 48.66 08/03/2018 9:57 AM PLASTIC BUBBLE PACKER Plan of Treatment Health Maintenance Due Date [...] of 2) 2025 INFLUENZA VACCINE (#1) [address] [place] [address] [address] Member Subscriber Plan / Payer (Ef fective 2017-Present) Name:Karoline Gaines Relation to Subscriber:Self Name:Karoline Gaines Payer ID:Not on file Type:IntroNet Address: [facility] [address] [place] [id number] Care Teams Tyre Builder Relationship Specialty Start Date End Date Floresita Kapoor MD [address] [place] [address] PCP - General 02/18/06
--- OUTSIDE RECORDS SUMMARY | 2025-06-21 13:49 | XMS_ITS | Encounter Summary ---
Author Organization [facility] Address [address] [place] [address] Care Team Providers Care Floriculturist Name Role Phone Floresita Kapoor MD Primary Care Provider [phone]- [phone] Encounter Details Date Type Department Care Team (Late st Contact Info) Description 07/28/2007 Outpatient Historical [facility] 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
--- OUTSIDE RECORDS SUMMARY | 2025-06-21 13:49 | XMS_ITS | Encounter Summary ---
Author Organization [facility] Address [address] [place] [address] Care Team Providers Care Still Operator Name Role Phone Floresita Kapoor MD Primary Care Provider [phone]- [phone] Encounter Details Date Type Department Care Team (Latest Contact Info) Description 02/18/2006 Outpatient Historical [facility] Operating Room [address] [place] [phone] Gio Bee MD [address] [place] [address] Chronic Tonsillitis (Primary Dx) Social History Tobacco Use Types Packs/Day Years Used Date Smoking Tobacco: Never Assessed Comments Unknown Sex and Gender Information Value Date Recorded Sex Assigned at Not on file 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 Gender Identity Not on file Sexual Orientation Not on file documented as of this encounter Plan of Treatment Not on file documented as of this encounter Procedures Procedure Name Priority Date/Time Associated Diagnosis Comments CBC WITHOUT DIFFERENTIAL Routine 02/18/2006 6:13 AM CDT COMPREHENSIVE METABOLIC PANEL Routine 02/18/2006 6:13 AM CDT documented in this encounter Results * CBC WITHOUT DIFFERENTIAL (02/18/2006 6:13 AM CDT) WBC 9.6 4.5 - 11.0 K/ul INTERFACE SYSTEM RBC 4.79 4.20 - 5.40 Mil/ul INTERFACE SYSTEM HEMOGLOBIN 13.7 12.0 - 16.0 g/dL INTERFACE SYSTEM HEMATOCRIT 41.5 36.0 - 46.0 % INTERFACE SYSTEM MCV 86.6 84.0 - 103.0 Fl INTERFACE SYSTEM MCH 28.6 27.0 - 34.0 pg INTERFACE SYSTEM MCHC 33.0 30.0 - 35.0 g/dL INTERFACE SYSTEM RDW 13.3 11.0 - 14.5 % INTERFACE SYSTEM PLATELETS 267 140 - 440 K/ul INTERFACE SYSTEM MPV 10.5 8.9 - 12.8 Fl INTERFACE SYSTEM NEUTROPHILS 59.2 42.2 - 75.2 % INTERFACE SYSTEM LYMPHOCYTES 32.0 24.0 - 44.0 % INTERFACE SYSTEM MONOCYTES 6.0 2.0 - 10.0 % INTERFACE SYSTEM EOSINOPHILS 2.4 0.0 - 7.0 % INTERFACE SYSTEM BASOPHILS 0.4 0.0 - 1.0 % INTERFACE SYSTEM NEUTROPHIL ABSOLUTE 5.7 2.0 - 8.0 K/uL INTERFACE SYSTEM LYMPHOCYTE ABSOLUTE 3.1 1.2 - 4.0 K/ul INTERFACE SYSTEM MONOCYTE ABSOLUTE 0.6 0.1 - 0.6 K/ul INTERFACE SYSTEM EOSINOPHIL ABSOLUTE 0.2 0.0 - 0.7 K/ul INTERFACE SYSTEM BASOPHILS ABSOLUTE 0.0 0.0 - 0.2 K/ul INTERFACE SYSTEM 02/18/2006 6:13 AM CDT us Gio Bee MD HEMATOLOGY ORDERABLES Final Res ult INTERFACE SYSTEM Refer to clinic/hospital department * COMPREHENSIVE METABOLIC PANEL (02/18/2006 6:13 AM CDT) GLUCOSE 97 70 - 110 mg/dL INTERFACE SYSTEM BUN 13 7 - 17 mg/dL INTERFACE SYSTEM CREATININE 0.9 0.7 - 1.2 mg/dL INTERFACE SYSTEM SODIUM 142 136 - 145 mEq/L INTERFACE SYSTEM POTASSIUM 3.7 3.5 - 5.0 mEq/L INTERFACE SYSTEM CHLORIDE 107 95 - 110 mEq/L INTERFACE SYSTEM CO2 27 22 - 32 mmol/l INTERFACE SYSTEM ANION GAP 12 9 - 20 mEq/L INTERFACE SYSTEM OSMOLALITY, CALCULATED 291 275 - 295 mOsm/Kg INTERFACE SYSTEM CALCIUM 9.3 8.4 - 10.5 mg/dL INTERFACE SYSTEM TOTAL PROTEIN 7.0 6.3 - 8.2 g/dL INTERFACE SYSTEM ALBUMIN 4.0 3.5 - 5.0 g/dL INTERFACE SYSTEM GLOBULIN (CALC) 3.0 2.4 - 3.9 g/dL INTERFACE SYSTEM ALBUMIN/GLOBULIN RATIO 1.3 1.0 - 2.3 INTERFACE SYSTEM ALKALINE PHOSPHATASE 99 25 - 100 U/L INTERFACE SYSTEM Comment: As of 05 the [facility] has changed testing methods. The new reference range is 25-100 The old referance range was 38-126 AST 21 8 - 33 U/L INTERFACE SYSTEM Comment: As of 05 the [facility] has changed testing methods. The new reference range is 8-33 The old referance range was Males 17-59 Females 14-36 ALT 31 4 - 36 IU/L INTERFACE SYSTEM Comment: As of 05 the [facility] has changed testing methods. The new reference range is 4-36 The old referance range was Males 21-72 Females 9-52 BILIRUBIN TOTAL 0.4 0.3 - 1.2 mg/dL INTERFACE SYSTEM Comment: As of 05 the [facility] has changed testing methods. The new reference range is 0.3-1.2 The old referance range was 0.2-1.4 02/18/2006 6:13 AM CDT us Gio Bee MD CHEMISTRY ORDERABLES Final Resu lt INTERFACE SYSTEM Refer to clinic/hospital department documented in this encounter Visit Diagnoses Diagnosis Chronic tonsillitis- Primary documented in this encounter Care Teams Still Operator Relationship Specialty Start Date End Date Floresita Kapoor MD [address] [place] [address] PCP - General 02/18/06 documented as of this encounter
--- OUTSIDE RECORDS SUMMARY | 2025-06-21 13:49 | XMS_ITS | Encounter Summary ---
Author Organization [facility] Address [address] [place] [address] Care Team Providers Care Continuity Reader Name Role Phone Floresita Kapoor MD Primary Care Provider [phone]- [phone] Encounter Details Date Type Department Care Team (Latest Contact Info) Description 05/24/2006 Outpatient Historical [facility] 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
--- OUTSIDE RECORDS SUMMARY | 2025-06-21 13:50 | XMS_ITS | Continuity of Care Document ---
Author Organization [facility], LJaswinderLKaren, [facility]) Address [address] [place] [address] Care Team Providers Care Heat Treat Puller Name Role Phone BRADLEY SOFIA Primary Care Provider Unavailabl e Assessment Encounter Date Assessment Date Assessment LastModified by Organization Details LastModified Time 05/14/2025 05/14/2025 Patient here today for a check-up and to recheck some stomach troubles she was having. She reports she is doing better as far as her belly is concerned. Not available 05/14/2025 10:35:49 Plan of Treatment Reminders Order Date Submit Date Provider Last Modified By Organization Details Last Modified Time Details Appointments OFFICE VISIT 20 2024 08:40A Maria Luisa SOFIA FUNDRAISING SALE REPRESENTATIVE Not available Not available Not available Lab None recorded. Referral None recorded. Procedures None recorded. Surgeries None recorded. Imaging None recorded. Medication Orders doxycycli ne hyclate 100 mg capsule 2024 025 [facility], [address] [place] [address], [address], 05/28/2025 05:02:04 prednison e 20 mg tablet 2024 025 [facility], [place], [address], 05/26/2025 05:01:08 Patient TargetsNo targets recorded. Patient Instructions Encounter Date Encounter Id Patient Instructions Last Modified By Organization Details Last Modified Time 05/14/2025 [id number] Call or return for questions or concerns. Not available 05/14/2025 10:34:46 Reason for Referral None Reported. Problems Name Problem SNOMED Code Status Onset Date Resolution Date Notes Provider Name and Address Organization Details Recorded Time Acne 32457480 Completed 201809/05/2018 ADULT ACNE - Status is Inactive ; Recorded 09/06/19 19 9:09AM by Simi Galvez CMT, Sapna on/Adden dum; Promoted ; acuity set as *; Not Available [facility] 3 03:10:30 Acute sinusiti s 86373864 Completed 201809/05/2018 ACUTE BACTERIA L RHINOSIN USITIS - Status is Inactive ; Recorded 09/06/19 19 9:09AM by Simi Galvez CMT, Annotati on/Adden dum; Promoted ; acuity set as *; ACUTE SINUSITI S - Status is Inactive ; Recorded 12/12/19 15 7:35AM by Karoline Zheng LPN, Annotati on/Adden dum; Promoted ; acuity set as *; ; Start Date : 12/12/19 15 Not Available [facility] 3 03:10:31 Bronchit is 84820910 Completed 201809/05/2018 BRONCHIT IS - Status is Inactive ; Recorded 09/06/19 19 9:09AM by Simi Galvez CMT, Alinaati on/Adden dum; Promoted ; acuity set as *; Not Available [facility] 3 03:10:31 Allergic rhinitis 05084955 Completed 201809/05/2018 ALLERGIC RHINITIS - Status is Inactive ; Recorded 09/06/19 19 9:09AM by Simi Galvez CMT, Alinaati on/Adden dum; Promoted ; acuity set as *; Not Available [facility] 3 03:10:31 Hemorrho ids 29239075 Active 2022 HEMORRHO IDS; Recorded 08/10/19 23 9:06AM by Leonor Cortez LPN, Office Visit; Promoted ; acuity set as *; SIMI esteban [facility], L.L.CJaswinder 4 16:22:08 Exacerba tion of intermit tent asthma 657333641 Active 2022 MILD INTERMIT TENT ASTHMA WITH ACUTE EXACERBA TION; Recorded 08/10/19 23 9:06AM by Leonor Cortez LPN, Office Visit; Promoted ; acuity set as *; SIMISUNI esteban [facility], L.L.CJaswinder 4 16:21:59 [facility] hyperten fernanda 92936866 Active 2023 SIMI LEONOR esteban [facility], L.L.CJaswinder 4 16:24:16 Hyperlip idemia 87006020 Active 2023 SIMI esteban [facility], Stephanie.CJaswinder 4 16:26:20 Gastroes ophageal reflux disease 700420098 Active 2023 SIMI esteban [facility], BennieL.CJaswinder 4 16:26:30 Muscle spasm of cervical muscle of neck 87752238702 4 Active 2024 Gilmer Gusman MD [address] [place] [address], [phone] , [facility], BennieLJaswinderCJaswinder 5 10:03:52 Problem Notes None recorded. Procedures Surgical History Date Name Laterality Status Provider Name and Address Organization Details Recorded Time 06/14/20 25 plain X-ray of chest completed SIMI GALVEZ [facility], BennieLKaren 06/18/2025 15:01:14 04/05/20 25 screening for malignant neoplasm of colon completed SIMI GALVEZ [facility], BennieLJaswinderCJaswinder 04/16/2025 19:30:35 04/01/20 25 screening mammography [facility] 04/02/2025 16:57:44 03/29/20 24 screening mammography completed SIMI GALVEZ [facility], BennieLKaren 04/06/2024 10:03:25 02/01/20 23 mammography completed SIMI GALVEZ [facility] L.L.CJaswinder 02/08/2023 13:15:13 08/25/19 22 plain X-ray of chest completed SIMI GALVEZ [facility], LJaswinderLJaswinderCJaswinder 12/20/2023 16:27:41 02/11/20 21 screening for malignant neoplasm of colon completed SIMI GALVEZ [facility], LJaswinderLJaswinderCJaswinder 12/20/2023 16:38:16 07/04/19 09 Hysterectomy completed BRADLEY SOFIA, [facility] [address] [place], [address], [facility], RoxyCJaswinder 12/26/2024 13:45:06 Cholecystectomy completed SIMI GALVEZ [facility], BennieLJaswinderCJaswinder 12/07/2022 19:08:56 Imaging Results None recorded. Procedure Notes None recorded. Medical Equipment None Reported. Allergies Allergen ID Allergen Name Allergen Category Reaction Reaction Severity Criticality Documentation Date Start Date Code Code System Note Provider Name and Address Organization Details Recorded Time 70843 trivalent influenza vaccine medicatio n anaphylax is Not available Not available 01/29/2023 26970 9 RxNorm SIMI esteban [facility], BennieLKaren 4 16:21:29 95107 diphenhyd ramine / pseudoeph edrine medicatio n Not available Not available Not available 01/29/2023 34755 2 RxNorm SIMI esteban [facility], BennieLJaswinderCJaswinder 4 16:21:03 01011 penicilli n V potassium medicatio n hives itching swelling severe severe severe Not available 01/29/2023 30978 5 RxNorm SIMI esteban [facility], eBnnieLJaswinderCJaswinder 4 16:21:42 4004 Vaccine product containin g only influenza virus antigen (medicina l product) medicatio n anaphylax is severe Not available 12/07/20222003 61292 91729 105 SNOMED BRADLEY SOFIA, [facility] [address] [place], [address], [facility] 5 10:28:09 4005 Tylenol medicatio n itching rash severe severe Not available 12/07/202217053 3 [facility] 19:06:27 4006 Compazine medicatio n other severe Not available 12/07/202204488 6 [facility]Norm [facility] 3 19:06:38 4007 Product containin g penicilli n (product) medicatio n Not available Not available Not available 12/07/2022 52545 8001 SNOMED [facility] 3 11:43:27 4008 cephalexi n medicatio n Not available Not available Not available 12/07/2022 2231 RxNorm [facility] 3 19:06:59 4009 chlorphen iramine / phenyleph rine medicatio n Not available Not available Not available 12/07/2022 30630 3 RxNorm BRADLEY BISMARK, [facility] [address] [place], [address], [facility] 5 10:28:09 90310 morphine medicatio n dizziness hives vomiting severe severe severe Not available 05/14/2025 7052 RxNorm BRADLEY BISMARK, [facility] [address] [place], [address], [facility] 5 10:28:09 Medications Name Sig Start Date [...] t Available azithromy lorena 250 mg tablet 06/14 completed Not Available Not Available Not Available [...] Details Last Updated DateTime 5 170.18 cm 52.6 kg/m2 883291. 04 g 98 % 88 /min 20 /min 138/82 mm[Hg] SIMI GALVEZ [facility] 5 09:59:16 Social History Question Answer Notes LastModified by Organizat ion Details LastModified Time Tobacco Smoking Status Never Smoker SIMI esteban [facility], [facility] 12/07/2022 19:08:20 What Was The Date Of Your Most Recent Tobacco Screening? 06/14/2025 [email or web address] Information not available 06/14/2025 What Is Your Relationship Status? [email or web address] Information not available 12/07/2022 Sex: Unknown Functional Status Question Answer Note LastModified by Organizat ion Details LastModified Time Do you use any illicit or recreational drugs? No [email or web address] Information not available 12/07/2022 What is your level of alcohol consumption? None [email or web address] Information not available 12/07/2022 Are you able to care for yourself independently? Yes [email or web address] Information not available 12/07/2022 Mental Status None recorded. Family History Relationship Description Onset Age of this Age Resolved Age Notes LastModified by Organization Details LastModified Time Maternal Grandmother Malignant neoplasm of lung Not available 2024 10:28:04 Maternal Grandmother Type 2 diabetes mellitus Not available 2024 10:28:04 Maternal Grandmother Essential hypertension 65 84 Not available 05/2025 10:28:04 Mother Type 2 diabetes mellitus [email or web address] Not available 12/19 16:25:31 Mother Essential hypertension [email or web address] Not available 16:25:49 Maternal Grandfather Malignant neoplasm of lung 66 Not available 2024 10:28:04 Father Essential hypertension 50 Not available 05/2025 10:28:04 Medical History Condition Response Coronary Artery Disease N Other N Gout N Kidney Stones N Blood Diseases N Hyperthyroidism N Breast Cancer N Blood Transfusion N Depression N COPD N Lung Disease N Hypothyroidism N Developmental or Behavioral Disorders N Defects or Inherited Disease N Breast Problem N Difficulty Swallowing N [...] N Heart Disease N Pulmonary Embolism N Pre-Eclampsia N Hypertension Y Chronic Ear Infections Y Osteoporosis N Chicken Pox Y Autism Spectrum Disorder (ASD) N Thrombophilias N Gynecological HistoryNo gynecological history recorded. Obstetrics History GPAL:G 0 P 0 0 0 0 Immunizations Vaccine Type Date Status Note Provider Nam e and Address Organization Details Recorded Time Tdap 5 completed SIMI esteban, [facility] 03/20/2025 16:45:08 Tdap 3 completed BRADLEY SOFIA, [facility] [address] [place], [address], [facility] 12/08/2022 10:52:59 Td (adult), 2 Lf tetanus toxoid, preservative free, adsorbed 3 completed BRADLEY SOFIA, [facility] [address] [place] [address], [address], [facility] 12/08/2022 10:52:59 Hep B, adult 1 leisa SOFIA, [facility] [address] [place], [address], [facility] 12/08/2022 10:52:59 Hep B, adult 0 completed BRADLEY SOFIA, [facility] [address] [place], [address], [facility] 12/08/2022 10:52:59 Hep B, adult 0 leisa SOFIA, [facility] [address] [place], [address], [facility] 12/08/2022 10:52:59 Hep A, adult 6 completed BRADLEY SOFIA, [facility] [address] [place], [address], [facility] 12/08/2022 10:52:59 Hep A, adult 5 completed BRADLEY BISMARK, [facility] [address] [place], [address], [facility] 12/08/2022 10:52:59 Influenza, split virus, trivalent, preservative 3 completed Not Available [facility] 06/29/2023 08:19:01 Influenza, split virus, trivalent, preservative 7 completed Not Available [facility] 06/29/2023 08:19:01 Past Encounters Encounter ID Performer Location Encounter Start Date Encounter Closed Date Diagnosis/Indication Diagnosis SNOMED-CT Code Diagnosis ICD10 Code Diagnosis IMO Codes Diagnosis Note [id number] BRADLEY SOFIA [facility] ([facility] [address] [place] [address] 04/30/2025 15:35:49 05/01/2025 11:39:02 Bacterial sinusitis 236187186 J32.9 B96.89 [id number] BRADLEY SOFIA [facility] ([facility]) [address] [place] [address] 05/14/2025 09:35:12 05/14/2025 10:45:18 Gastroesophageal reflux disease 857870494 K21.9 Pantoprazo le as needed now. Bacterial sinusitis 7034 56802 J32.9 B96.89 [id number] Health Concerns Section Related Observation LastModified by Organization Detai ls LastModified Time None Recorded Concern Status LastModified by Organization Details LastModified Time None Recorded Payers Encounter Date Sequence Insurance Name Policy Number Policy Payton Covered Member ID Payton Member ID Guarantor Name 05/14/2025 1 [employer] [id number] Cam Gaines [id number] RUY Gaines Notes Date Note Type Note Provider Name and Address Organization Details Recorded Time 05/14/2025 text/html Reflux/GERDRepor keagan by PatientHPIFor severity, patient reportsimproving. For context, patient reportsnon-smoker. Ear Pain Brief HPIReported by PatientHPIFor location, patient reportsbilateral. BRADLEY SOFIA, [facility] [address] [place], [address], [facility] 05/14/2025 10:38:37 OBGyn Episode No OBEpisode recorded.
--- OUTSIDE RECORDS SUMMARY | 2025-06-21 13:50 | XMS_ITS | Continuity of Care Document ---
Author Organization [facility], LJaswinderLJaswinderCJaswinder, [facility]) Address [address] [place] [address] Care Team Providers Care Test Department Helper Name Role Phone BRADLEY SOFIA Primary Care Provider Unavailabl e Assessment Encounter Date Assessment Date Assessment LastModified by Organization Details LastModified Time 04/30/2025 04/30/2025 Patient here today for sinus troubles. She has been taking Sudafed at home. Not available 04/30/2025 17:11:19 Plan of Treatment Reminders Order Date Submit Date Provider Last Modified By Organization Details Last Modified Time Details Appointments OFFICE VISIT 20 2024 08:40A JOSE MIGUEL ANGULO Not available Not available Not available Lab None recorded. Referral None recorded. Procedures None recorded. Surgeries None recorded. Imaging None recorded. Medication Orders prednison e 20 mg tablet 2024 025 [facility] [place], [facility] [place], [address], 05/26/2025 05:01:08 azithromy lorena 250 mg tablet 2024 025 [email or web address] 76 [facility], [address] [place], [address], 06/14/2025 09:32:08 Patient TargetsNo targets recorded. Patient Instructions Encounter Date Encounter Id Patient Instructions Last Modified By Organization Details Last Modified Time 04/30/2025 [id number] Call or return for questions or concerns. Not available 04/30/2025 17:08:17 Reason for Referral None Reported. Results Created Date Observation Date Name Description Value Unit Range Abnormal Flag Note LastModifiedBy Organization Detail LastModifiedTime 04/05/2004/05/2025 COLOG UARD cologuard result reportable NEGATI VE negati ve normal The Colog uard (TM) test was perfo rmed on this speci men. NEGAT BULL TEST RESUL T. A negat bull Colog uard resul t indic ates a low likel ihood that a color ectal cance r (CRC) or advan joann adeno ma (rosa elena omato us polyp s with more advan joann pre-m align ant featu res) is prese nt. The [facility] e that a perso n with a negat bull Colog uard test has a color ectal cance r is less than 1 in 1500 (nega tive predi ctive value >99.9 %) or has an advan joann adeno ma is less than 5.3% (nega tive predi ctive value 94.7% ). These data are based on a prosp ectiv e cross -sect ional study of ,00 0 indiv idual s at [place] ge risk for color ectal cance r who were scree telma with both Colog uard and colon oscop y. (Anival Sterling et al, N Engl J Med 2014; 370(1 4):12 86-12 97) The north l value (refe rence range ) for this assay is negat bull. COLOG UARD RE-SC JUAN DELUCA RECOM MENDA TION: Perio dic color ectal cance r scree loyd is an impor tant part of preve ntive healt hcare for asymp tomat ic indiv idual s at [place] ge risk for color ectal cance r. Follo wing a negat bull Colog uard resul t, the Ameri can Cance r Socie ty and U.S. Multi -Soci ety Task Force scree loyd guide lines recom mend a Colog uard re-sc reetroy ng inter mell of 3 years . Refer ences : Ameri can Cance r Socie ty Guide line for Color ectal Cance r Scree loyd: https ://ww w.can cer.o rg/ca ncer/ colon -rect al-ca ncer/ detec tion- diagn osis- stagi ng/ac s-rec ommen datio ns.ht ml.; Aram DOWNING, Oscar tan CR, Kolton andujar JK, Color ectal Cance r Scree loyd: Recom menda tions for Physi cians and Patie nts from the U.S. Multi -Soci ety Task Force on Color ectal Cance r Scree loyd , Am J Rosa oente rolog y 2017; 112:1 016-1 030. TEST DESCR IPTIO N: Macdona site algor ithmi c connie sis of stool DNA-b dimitrios blake with hemog lobin immun oassa y. Quant itati ve value s of indiv idual bioma rkers are not repor table and are not assoc iated with indiv idual bioma rker resul t refer ence range s. Colog uard is inten ded for color ectal cance r scree loyd of adult s of eithe r sex, 45 years or older , who are at [facility] for color ectal cance r (CRC) . Colog uard has been appro arsh for use by the U.S. FDA. The perfo rmanc e of Colog uard was estab lishe d in a cross secti onal study of [facility] adult s aged 50-84 . Colog uard perfo rmanc e in patie nts ages 45 to 49 years was estim ated by sub-g roup connei sis of near- age group s. Colon oscop ies perfo rmed for a posit bull resul t may find as the most clini devin signi marika arellano n: color ectal cance r [4.0% ], advan joann adeno ma (incl uding sessi le amy keagan polyp s great er than or equal to 1cm diame ter) [20%] or non- advan joann adeno ma [31%] ; or no color ectal neopl amanda [45%] . These estim ates are deriv ed from a prosp ectiv e cross -sect ional scree loyd study of 0 indiv idual s at [place]a ge risk for color ectal cance r who were scree telma with both Colog uard and colon oscop y. (Anival Coley al, N Engl J Med 2014; 370(1 4):12 86-12 97.) Colog uard may produ ce a false negat bull or false posit bull resul t (no color ectal cance r or preca ncero us polyp prese nt at colon oscop y follo w up). A negat bull Colog uard test resul t does not guara ntee the absen ce of CRC or advan joann adeno ma (pre- cance r). The curre nt Colog uard scree loyd inter mell is every 3 years . (Amer ican Cance r Socie ty and U.S. Multi -Soci ety Task Force ). Colog uard perfo rmanc e data in a 0 patie nt pivot al study using colon oscop y as the refer ence metho d can be acces sed at the follo wing locat ion: www.e xactl abs.c om/re sults . Addit ional descr iptio n of the Colog uard test proce ss, warni ngs and preca ution s can be found at www.c ologu adrienne.c om. Not Available [facility] [address], [place], [address], 04/10/2025 19:06:43 04/01/20 25 04/01/2025 MAMMO , andressae loyd, digit al, bilat eral No observ ation record ed. [facility] [address] [place], [address], 04/30/2025 17:04:48 Result Notes None recorded. Problems Name Problem SNOMED Code Status Onset Date Resolution Date Notes Provider Name and Address Organization Details Recorded Time Acne 14560016 Completed 201809/05/2018 ADULT ACNE - Status is Inactive ; Recorded 09/06/19 19 9:09AM by Simi Galvez CMT, Annotati on/Adden dum; Promoted ; acuity set as *; Not Available [facility] 3 03:10:30 Acute sinusiti s 34916236 Completed 201809/05/2018 ACUTE BACTERIA L RHINOSIN USITIS - Status is Inactive ; Recorded 09/06/19 19 9:09AM by Simi Galvez CMT, Annotati on/Adden dum; Promoted ; acuity set as *; ACUTE SINUSITI S - Status is Inactive ; Recorded 12/12/19 15 7:35AM by Karoline Zheng LPN, Annotati on/Adden dum; Promoted ; acuity set as *; ; Start Date : 12/12/19 15 Not Available [facility] 3 03:10:31 Bronchit is [id number] Completed 201809/05/2018 BRONCHIT IS - Status is Inactive ; Recorded 09/06/19 19 9:09AM by Simi Galvez CMT, Annotati on/Adden dum; Promoted ; acuity set as *; Not Available [facility] 3 03:10:31 Allergic rhinitis 12155874 Completed 201809/05/2018 ALLERGIC RHINITIS - Status is Inactive ; Recorded 09/06/19 19 9:09AM by Simi Galvez CMT, Annotati on/Adden dum; Promoted ; acuity set as *; Not Available [facility] 3 03:10:31 Hemorrho ids 22920696 Active 2022 HEMORRHO IDS; Recorded 08/10/19 23 9:06AM by Dalia Cortez LPN, Office Visit; Promoted ; acuity set as *; SIMI esteban [facility] 4 16:22:08 Exacerba tion of intermit tent asthma 508035827 Active 2022 MILD INTERMIT TENT ASTHMA WITH ACUTE EXACERBA TION; Recorded 08/10/19 23 9:06AM by Dalia Cortez LPN, Office Visit; Promoted ; acuity set as *; SIMI esteban [facility] 4 16:21:59 [facility] hyperten fernanda 46500163 Active 2023 SIMI esteban [facility] 4 16:24:16 Hyperlip idemia 51623385 Active 2023 SIMI esteban [facility] 4 16:26:20 Gastroes ophageal reflux disease 243077519 Active 2023 SIMI esteban [facility] 4 16:26:30 Muscle spasm of cervical muscle of neck 39194566795 4 Active 2024 Gilmer Gusman MD [address] [place] [address], [address] , [facility] 5 10:03:52 Problem Notes None recorded. Procedures Surgical History Date Name Laterality Status Provider Name and Address Organization Details Recorded Time 06/14/20 25 plain X-ray of chest completed [facility] 06/18/2025 15:01:14 04/05/20 25 screening for malignant neoplasm of colon completed [facility] 04/16/2025 19:30:35 04/01/[address] [facility] 04/02/2025 16:57:44 03/29/[address] [facility] 04/06/2024 10:03:25 02/01/[address] [facility] 02/08/2023 13:15:13 08/25/19 22 plain X-ray of chest completed [facility] 12/20/2023 16:27:41 02/11/20 21 screening for malignant neoplasm of colon completed [facility] 12/20/2023 16:38:16 07/04/19 09 Hysterectomy completed BRADLEY SOFIA, [facility] [address] [place], [address], [facility] 12/26/2024 13:45:06 Cholecystectomy completed SIMI GALVEZ [facility] 12/07/2022 19:08:56 Imaging Results None recorded. Procedure Notes None recorded. Medical Equipment None Reported. Allergies Allergen ID Allergen Name Allergen Category Reaction Reaction Severity Criticality Documentation Date Start Date Code Code System Note Provider Name and Address Organization Details Recorded Time 49260 trivalent influenza vaccine medicatio n anaphylax is Not available Not available 01/29/2023 60052 9 [facility] 4 16:21:29 92241 diphenhyd ramine / pseudoeph edrine medicatio n Not available Not available Not available 01/29/2023 27467 2 RxNorm SIMI esteban [facility] 4 16:21:03 39178 penicilli n V potassium medicatio n hives itching swelling severe severe severe Not available 01/29/2023 5 [facility] 16:21:42 4004 Vaccine product containin g only influenza virus antigen (medicina l product) medicatio n anaphylax is severe Not available 12/07/20222003 53129 57567 105 SNOMED BRADLEY SOFIA, [facility] [address] [place], [address], [facility] 5 10:28:09 4005 Tylenol medicatio n itching rash severe severe Not available 12/07/202252812 3 RxNorm SIMI esteban [facility] 3 19:06:27 4006 Compazine medicatio n other severe Not available 12/07/202293538 6 RxNorm SIMI esteban, [facility] 3 19:06:38 4007 Product containin g penicilli n (product) medicatio n Not available Not available Not available 12/07/2022 55377 8001 [facility]ED [facility] 11:43:27 4008 cephalexi n medicatio n Not available Not available Not available 12/07/2022 2231 RxNorm SIMI esteban, [facility] 3 19:06:59 4009 chlorphen iramine / phenyleph rine medicatio n Not available Not available Not available 12/07/2022 48384 3 RxNorm BRADLEY SOFIA, [address], [address], [facility] 5 10:28:09 34993 morphine medicatio n dizziness hives vomiting severe severe severe Not available 05/14/2025 7052 RxNorm BRADLEY BISMARK, [address], [address], [facility] 5 10:28:09 Medications Name [...] and Address Organization Details Last Updated DateTime 171.45 cm 51.1 kg/m2 912837. 07 g 96 % 86 /min 20 /min 138/88 mm[Hg] SIMI GALVEZ [facility] 16:30:15 Social History Question Answer Notes LastModified by [employer] Details LastModified Time Tobacco Smoking Status Never Smoker SIMI esteban [facility] 12/07/2022 19:08:20 What Was The Date Of Your Most Recent Tobacco Screening? 06/14/2025 [email or web address] Information not available 06/14/2025 What Is Your Relationship Status? [email or web address] Information not available 12/07/2022 Sex: Unknown Functional Status Question Answer Note LastModified by Organizat ion Details LastModified Time Do you use any illicit or recreational drugs? No [email or web address] Information not available 12/07/2022 What is your level of alcohol consumption? None [email or web address] Information not available 12/07/2022 Are you able to care for yourself independently? Yes [email or web address] Information not available 12/07/2022 Mental Status None recorded. Family History Relationship Description Onset Age of this Age Resolved Age Notes LastModified by Organization Details LastModified Time Maternal Grandmother Malignant neoplasm of lung Not available 2024 10:28:04 Maternal Grandmother Type 2 diabetes mellitus Not available 2024 10:28:04 Maternal Grandmother Essential hypertension 65 84 Not available 05/2025 10:28:04 Mother Type 2 diabetes mellitus [email or web address] Not available 12/19 16:25:31 Mother Essential hypertension [email or web address] Not available 16:25:49 Maternal Grandfather Malignant neoplasm [...] Recorded Time Tdap 5 completed SIMI esteban, [facility] 03/20/2025 16:45:08 Tdap 3 completed BRADLEY SOFIA, [address], [address], [facility] 12/08/2022 10:52:59 Td (adult), 2 Lf tetanus toxoid, preservative free, adsorbed 3 completed BRADLEY SOFIA, [address], [address], [facility] 12/08/2022 10:52:59 Hep B, adult 1 completed BRADLEY SOFIA, [address], [address], [facility] 12/08/2022 10:52:59 Hep B, adult 0 leisa SOFIA, [address], [address], [facility] 12/08/2022 10:52:59 Hep B, adult 0 leisa SOFIA, [address], [address], [facility] 12/08/2022 10:52:59 Hep A, adult 6 leisa SOFIA, [address], [address], [facility] 12/08/2022 10:52:59 Hep A, adult 5 completed BRADLEY SOFIA, [address], [address], [facility] 12/08/2022 10:52:59 Influenza, split virus, trivalent, preservative 3 completed Not Available [facility] 06/29/2023 08:19:01 Influenza, split virus, trivalent, preservative 7 completed Not Available [facility] 06/29/2023 08:19:01 Past Encounters Encounter ID Performer Location Encounter Start Date Encounter Closed Date Diagnosis/Indication Diagnosis SNOMED-CT Code Diagnosis ICD10 Code Diagnosis IMO Codes Diagnosis Note [id number] JOSE MIGUEL LEDBETTER [facility] [address] [place] [address] 04/30/2025 15:35:49 05/01/2025 11:39:02 Bacterial sinusitis 703917576 J32.9 B96.89 [id number] Health Concerns Section Related Observation LastModified by Organization Detai ls LastModified Time None Recorded Concern Status LastModified by Organization Details LastModified Time None Recorded Payers Encounter Date Sequence Insurance Name Policy Number Policy Payton Covered Member ID Payton Member ID Guarantor Name 04/30/2025 1 [employer] [id number] Cam Gaines [id number] DT Karoline Gaines Notes Date Note Type Note Provider Name and Address Organization Details Recorded Time 04/30/2025 text/html Sinusitis/Allerg yRe ported by PatientHPIFor quality, patient reportsdull,congest ed, andthrobbing. For location, patient reportsfrontal. JOSE MIGUEL LEDBETTER [address] [place], [address], [facility] 04/30/2025 17:16:29 OBGyn Episode No OBEpisode recorded.
--- OUTSIDE RECORDS SUMMARY | 2025-06-21 13:50 | XMS_ITS | Continuity of Care Document ---
Author Organization [facility], [place], [facility]) Address [address] [place] [address] Care Team Providers Care Child And Family Services Specialist Name Role Phone BRADLEY SOFIA Primary Care Provider Unavailabl e Assessment No assessment recorded. Plan of Treatment Reminders Order Date Submit Date Provider Last Modified By Organization Details Last Modified Time Details Appointments OFFICE VISIT 20 2024 08:40A JOSE MIGUEL ANGULO Not available Not available Not available Lab None recorded. Referral None recorded. Procedures None recorded. Surgeries None recorded. Imaging None recorded. Medication Orders doxycycli ne hyclate 100 mg capsule [address], [address], 06/14/2025 15:47:29 prednison e 10 mg tablet 2024 025 [facility], [address] [place] [address], [address], 06/14/2025 15:47:30 Patient TargetsNo targets recorded. Patient Instructions Encounter Date Encounter Id Patient Instructions Last Modified By Organization Details Last Modified Time 06/14/2025 [id number] Continue, generi c subha, increased water, and vitamins. Increase fluids and follow up for worsening [email or web address] Not available 06/14/2025 09:58:52 Reason for Referral None Reported. Problems Name Problem SNOMED Code Status Onset Date Resolution Date Notes Provider Name and Address Organization Details Recorded Time Acne 95208866 Completed 201809/05/2018 ADULT ACNE - Status is Inactive ; Recorded 09/06/19 9:09AM by Simi Gómez CMT, Annotati on/Adden dum; Promoted ; acuity set as *; Not Available [facility] 3 03:10:30 Acute sinusiti s 60400525 Completed 201809/05/2018 ACUTE BACTERIA L RHINOSIN USITIS - Status is Inactive ; Recorded 09/06/19 19 9:09AM by Simi Gómez CMT, Annotati on/Adden dum; Promoted ; acuity set as *; ACUTE SINUSITI S - Status is Inactive ; Recorded 12/12/19 15 7:35AM by Karoline Zheng LPN, Annotati on/Adden dum; Promoted ; acuity set as *; ; Start Date : 12/12/19 15 Not Available [facility] 3 03:10:31 Bronchit is 34467096 Completed 201809/05/2018 BRONCHIT IS - Status is Inactive ; Recorded 09/06/19 19 9:09AM by Simi Gómez CMT, Alinaati on/Adden dum; Promoted ; acuity set as *; Not Available [facility] 3 03:10:31 Allergic rhinitis 23768419 Completed 201809/05/2018 ALLERGIC RHINITIS - Status is Inactive ; Recorded 09/06/19 9:09AM by Simi Gómez CMT, Annotati on/Adden dum; Promoted ; acuity set as *; Not Available [facility] 3 03:10:31 Hemorrho ids 81448304 Active 2022 HEMORRHO IDS; Recorded 08/10/19 23 9:06AM by Leonor Cortez LPN, Office Visit; Promoted ; acuity set as *; MARISSA Bernabe [facility] 4 16:22:08 Exacerba tion of intermit tent asthma 776383499 Active 2022 MILD INTERMIT TENT ASTHMA WITH ACUTE EXACERBA TION; Recorded 08/10/19 23 9:06AM by Leonor Cortez LPN, Office Visit; Promoted ; acuity set as *; SIMI LEONOR null, [facility] 4 16:21:59 Essshashank l andrey tamezon 19581532 Active 2023 SIMI esteban [facility] 4 16:24:16 Hyperlip idemia 88395878 Active 2023 SIMI esteban [facility] 4 16:26:20 Gastroes ophageal reflux disease 133835990 Active 2023 SIMI esteban [facility] 4 16:26:30 Muscle spasm of cervical muscle of neck 79770757678 4 Active 2024 Gilmer Gusman MD [address] [place] [address], [address] [facility] 5 10:03:52 Problem Notes None recorded. Procedures Surgical History Date Name Laterality Status Provider Name and Address Organization Details Recorded Time 06/14/20 25 plain X-ray of chest completed [facility] 06/18/2025 15:01:14 04/05/20 25 screening for malignant neoplasm of colon completed [facility] 04/16/2025 19:30:35 04/01/20 25 screening mammography completed [facility] 04/02/2025 16:57:44 03/29/20 24 screening mammography completed [facility] 04/06/2024 10:03:25 02/01/20 23 mammography completed [facility] 02/08/2023 13:15:13 08/25/19 22 plain X-ray of chest completed SIMI LEONOR [facility] LJ[facility]winderL.CJaswinder 12/20/2023 16:27:41 02/11/20 21 screening for malignant neoplasm of colon completed SIMI LEONOR [facility] 12/20/2023 16:38:16 07/04/19 09 Hysterectomy completed BRADLEY SOFIA, [facility] [address] [place], [address], [facility] 12/26/2024 13:45:06 Cholecystectomy completed SIMI LEONOR [facility] 12/07/2022 19:08:56 Imaging Results None recorded. Procedure Notes None recorded. Medical Equipment None Reported. Allergies Allergen ID Allergen Name Allergen Category Reaction Reaction Severity Criticality Documentation Date Start Date Code Code System Note Provider Name and Address Organization Details Recorded Time 27961 trivalent influenza vaccine medicatio n anaphylax is Not available Not available 01/29/2023 82833 9 RxNorm SIMI esteban [facility] 4 16:21:29 51620 diphenhyd ramine / pseudoeph edrine medicatio n Not available Not available Not available 01/29/2023 95578 2 RxNorm SIMI estbean [facility] 4 16:21:03 09746 penicilli n V potassium medicatio n hives itching swelling severe severe severe Not available 01/29/202369302 5 RxNorm SIMI esteban [facility] 4 16:21:42 4004 Vaccine product containin g only influenza virus antigen (medicina l product) medicatio n anaphylax is severe Not available 12/07/20222003 32558 60868 105 SNOMED BRADLEY SOFIA, [facility] [address] [place], [address], [facility] 5 10:28:09 4005 Tylenol medicatio n itching rash severe severe Not available 12/07/202245257 3 RxNorm SIMI esteban [facility] 3 19:06:27 4006 Compazine medicatio n other severe Not available 12/07/2022 95624 6 RxNorm SIMI esteban, [facility] 3 19:06:38 4007 Product containin g penicilli n (product) medicatio n Not available Not available Not available 12/07/2022 74573 8001 SNOMED SIMI esteban, [facility] 3 11:43:27 4008 cephalexi n medicatio n Not available Not available Not available 12/07/2022 2231 RxNorm SIMI esteban, [facility] 3 19:06:59 4009 chlorphen iramine / phenyleph rine medicatio n Not available Not available Not available 12/07/2022 79648 3 RxNorm BRADLEY BISMARK, [facility] [address] [place], [address], [facility] 5 10:28:09 86611 morphine medicatio n dizziness hives vomiting severe severe severe Not available 05/14/2025 7052 RxNorm BRADLEYPatito SOFIA, [facility] [address] [place], [address], [facility] 5 10:28:09 Medications Name [...] height Body mass index (BMI) Body weight Body temperature Heart rate Oxygen saturation Systolic And Diastolic Provider Name and Address Organization Details Last Updated DateTime 5 170.18 cm 52 kg/m2 264086. 67 g 98.6 [degF] 82 /min 98 % 142/76 mm[Hg] Ame Gilliam [facility] 09:36:29 Social History Question Answer Notes LastModified by Organizat ion Details LastModified Time Tobacco Smoking Status Never Smoker SIMI esteban [facility] 12/07/2022 19:08:20 What Was The Date Of Your Most Recent Tobacco Screening? 06/14/2025 [email or web address] Information not available 06/14/2025 What Is Your Relationship Status? [email or web address] Information not available 12/07/2022 Sex: Unknown Functional Status Question Answer Note LastModified by Organizat ion Details LastModified Time Do you use any illicit or recreational drugs? No Information not available 12/07/2022 What is your level of alcohol consumption? None [email or web address] Information not available 12/07/2022 Are you able to care for yourself independently? Yes Information not available 12/07/2022 Mental Status None recorded. Family History Relationship Description Onset Age of this Age Resolved Age Notes LastModified by Organization Details LastModified Time Maternal Grandmother Malignant neoplasm of lung Not available 2024 10:28:04 Maternal Grandmother Type 2 diabetes mellitus Not available 2024 10:28:04 Maternal Grandmother Essential hypertension 65 84 Not available 05/2025 10:28:04 Mother Type 2 diabetes mellitus [email or web address] Not available 12/19 16:25:31 Mother Essential hypertension [email or web address] Not available 16:25:49 Maternal Grandfather Malignant neoplasm [...] Details Recorded Time [facility]ap 5 [facility] 03/20/2025 16:45:08 Tdap 3 completed BRADLEY SOFIA, [address], [address], [facility] 12/08/2022 10:52:59 Td (adult), 2 Lf tetanus toxoid, preservative free, adsorbed 3 completed BRADLEY SOFIA, [address], [address], [facility] 12/08/2022 10:52:59 Hep B, adult 1 leisa SOFIA, [address], [address], [facility] 12/08/2022 10:52:59 Hep B, adult 0 leisa SOFIA, [address], [address], [facility] 12/08/2022 10:52:59 Hep B, adult 0 leisa SOFIA, [address], [address], [facility] 12/08/2022 10:52:59 Hep A, adult 6 leisa SOFIA, [address], [address], [facility] 12/08/2022 10:52:59 Hep A, adult 5 completed JOSE MIGUEL LEDBETTER [address] [place], [address], [facility] 12/08/2022 10:52:59 Influenza, split virus, trivalent, preservative 3 completed Not Available [facility] 06/29/2023 08:19:01 Influenza, split virus, trivalent, preservative 7 completed Not Available [facility] 06/29/2023 08:19:01 Past Encounters Encounter ID Performer Location Encounter Start Date Encounter Closed Date Diagnosis/Indication Diagnosis SNOMED-CT Code Diagnosis ICD10 Code Diagnosis IMO Codes Diagnosis Note [id number] JOSE MIGUEL LEDBETTER [facility] ([facility]) [address] [place] [address] 05/22/2025 14:56:42 05/22/2025 16:30:54 Bronchitis 51002476 J40 88212 [id number] SAMMIE NUNN APRN [facility] ([facility]) [address] [place] [address] 06/14/2025 09:25:45 06/14/2025 10:07:56 Bacterial sinusitis 954057113 J32.9 B96.89 [id number] Health Concerns Section Related Observation LastModified by Organization Detai ls LastModified Time None Recorded Concern Status LastModified by Organization Details LastModified Time None Recorded Payers Encounter Date Sequence Insurance Name Policy Number Policy Payton Covered Member ID Payton Member ID Guarantor Name 06/14/2025 1 EDUARDO (PPO) [id number] Cam Gaines [id number] Karoline Gaines Notes Date Note Type Note Provider Name and Address Organization Details Recorded Time 06/14/2025 text/html walk in ptPt is having sinus drainage, knot behind left ear, chest/nasal congestion and cough for 2 months. Pt has been antibiotics three time in the last 2 months. SAMMIE NUNN APRN [address] [place], [address], [facility] 06/14/2025 09:59:20 OBGyn Episode No OBEpisode recorded.
--- OUTSIDE RECORDS SUMMARY | 2025-06-21 13:50 | XMS_ITS | Encounter Summary ---
Author Organization [facility] Address [address] [place] [address] Care Team Providers Care Bull Chain Operator Name Role Phone Floresita Kapoor MD Primary Care Provider [phone] Encounter Details Date Type Department Care Team (Late st Contact Info) Description 06/01/2018 Ancillary Orders [facility] Orthopedics - Orthopedic [facility] [address] [place] [address] [facility], External Provider [address] [place], [place] [address] Pain Social History Tobacco Use Types Packs/Day Years Used Date Smoking Tobacco: Never Assessed Comments Unknown Sex and Gender Information Value Date Recorded Sex Assigned at Not on file Legal Sex Female 4:44 AM MECHANICAL TECHNOLOGIST Gender Identity Not on file Sexual Orientation Not on file documented as of this encounter Plan of Treatment Not on file documented as of this encounter Results * MRI PRIOR STUDY (05/31/2011 9:55 AM MECHANICAL TECHNOLOGIST) Narrative 06/01/2018 3:15 PM MECHANICAL TECHNOLOGIST This exam was auto finalized to allow images to be scanned to PACS. us External Provider [facility] MR ORDERABLES Final Resu lt * MRI PRIOR STUDY (05/21/2009 9:05 AM MECHANICAL TECHNOLOGIST) Narrative 06/01/2018 3:15 PM MECHANICAL TECHNOLOGIST This exam was auto finalized to allow images to be scanned to PACS. us External Provider [facility] MR ORDERABLES Final Resu lt documented in this encounter Visit Diagnoses Diagnosis Pain Generalized pain Pain Generalized pain Pain Generalized pain documented in this encounter Care Teams Bull Chain Operator Relationship Specialty Start Date End Date Floresita Kapoor MD [address] [place] [address] PCP - General 02/18/06 documented as of this encounter
--- OUTSIDE RECORDS SUMMARY | 2025-06-21 13:50 | XMS_ITS | Data Portability ---
Author Organization [facility] Giles Grossman [facility], [facility], [facility] Address [address] [address] Care Team Providers Care Law Enforcement Director Name Role Phone BRADLEY SOFIA Primary Care Provider Unavailabl e Assessment Encounter Date Assessment Date Assessment LastModified by Organization Details LastModified Time 03/20/2025 03/20/2025 Patient here today for a check-up. She has been having some abdominal pain since her recent illness. She thought her last cologuard was last year but records show it was 2020. Not available 03/21/2025 13:44:52 04/30/2025 04/30/2025 Patient here today for sinus troubles. She has been taking Sudafed at home. Not available 04/30/2025 17:11:19 05/14/2025 05/14/2025 Patient here today for a check-up and to recheck some stomach troubles she was having. She reports she is doing better as far as her belly is concerned. Not available 05/14/2025 10:35:49 05/22/2025 05/22/2025 Patient here today with a cough that won't go away. She feels like she is rattling in the morning. Not available 05/22/2025 16:26:08 Plan of Treatment Reminders Order Date Submit Date Provider Last Modified By Organization Details Last Modified Time Details Appointments OFFICE VISIT 20 2024 08:40A JOSE MIGUEL ANGULO Not available Not available Not available Lab noninva sive colorec nixon cancer DNA + occult blood screeni ng, QL, stool 2024 025 [email or web address] [facility], [address], [address], [place], [address], 03/27/2025 09:30:18 magnesi um, serum or plasma 2024 025 [facility], [address], [place], [address], 03/21/2025 05:40:44 CMP, serum or plasma 2024 025 [facility], [address], [address], 03/20/2025 17:33:53 CBC 2024 025 [facility], [address] [facility] [address], [address], 03/20/2025 17:05:06 Referral None recorde d. Procedures None recorde d. Surgeries None recorde d. Imaging None recorde d. Medication Orders doxycyc line hyclate 100 mg capsule 2024 025 [facility], [address] [place] [address], [address], 06/14/2025 15:47:29 prednis one 10 mg tablet 2024 025 [facility], [facility] [place], [address], 06/14/2025 15:47:30 doxycyc line hyclate 100 mg capsule 2024 025 [facility], [address] [place] [address], [address], 05/28/2025 05:02:04 prednis one 20 mg tablet 2024 025 [facility], [address] [place] [address], [address], 05/26/2025 05:01:08 doxycyc line hyclate 100 mg capsule 2024 025 [facility], [address] [place] [address], [address], 05/28/2025 05:02:04 prednis one 20 mg tablet 2024 025 [facility], [address] [place] [address], [address], 05/26/2025 05:01:08 prednis one 20 mg tablet [address], [address], 05/26/2025 05:01:08 azithro mycin 250 mg tablet 2024 025 [email or web address] 76 [facility], [address] [place] [address], [address], 06/14/2025 09:32:08 nystati n 100,000 unit/gr am topical powder [address], [address], 03/20/2025 17:17:28 pantopr azole 40 mg tablet, delayed release [address], [address], 04/15/2025 18:33:32 Patient TargetsNo targets recorded. Patient Instructions Encounter Date Encounter Id Patient Instructions Last Modified By Organization Details Last Modified Time 03/20/2025 [id number] Call or return for questions or concerns. Not available 03/21/2025 13:44:15 04/30/2025 [id number] Call or return for questions or concerns. Not available 04/30/2025 17:08:17 05/14/2025 [id number] Call or return for questions or concerns. Not available 05/14/2025 10:34:46 05/22/2025 [id number] Call or return for questions or concerns. Not available 05/22/2025 16:26:30 06/14/2025 [id number] Continue, generi c subha, increased water, and vitamins. Increase fluids and follow up for worsening [email or web address] Not available 06/14/2025 09:58:52 Reason for Referral None Reported. Results Created Date Observation Date Name Description Value Unit Range Abnormal Flag Note LastModifiedBy Organization Detail LastModifiedTime 03/20/2003/20/2025 CBC WBC 11.8 x10 4.0-10 .5 high Not Available [facility] [address] [facility], [place], [address], 03/20/2025 17:05:06 03/20/2003/20/2025 CBC RBC 5.17 x10 3.50-5 .50 Not Available [facility] [address] [facility] 1, [place], [address], 03/20/2025 17:05:06 03/20/2003/20/2025 CBC HGB 14.3 g/dL 12.0-1 6.0 Not Available [facility] [address] [facility], [place], [address], 03/20/2025 17:05:06 03/20/2003/20/2025 CBC HCT 44.5 % 37.0-4 7.0 Not Available [facility] [address] [facility], [place], [address], 03/20/2025 17:05:06 03/20/2003/20/2025 CBC MCV 86.1 fL 80.0-9 9.9 Not Available [facility] [address], [place], [address], 03/20/2025 17:05:06 03/20/2003/20/2025 CBC MCH 27.6 pg 27.0-3 2.0 Not Available [facility] [address] [facility] [address], [place], [address], 03/20/2025 17:05:06 03/20/2003/20/2025 CBC MCHC 32.1 g/dL 32.0-3 6.0 Not Available [facility] [address] [facility] 1, [place], [address], 03/20/2025 17:05:06 03/20/2003/20/2025 CBC RDW 14.3 % 11.5-1 4.5 Not Available [facility] [address] [facility] 1, [place], [address], 03/20/2025 17:05:06 03/20/2003/20/2025 CBC plt 284.0 x10 140.0- 451.0 Not Available [facility] [address] [facility], [place], [address], 03/20/2025 17:05:06 03/20/2003/20/2025 CBC lymphocytes % 26.7 % 20.0-5 0.0 Not Available [facility] [address] [facility], [place], [address], 03/20/2025 17:05:06 03/20/2003/20/2025 CBC granulcytes % 63.2 % 30.0-7 0.0 Not Available [facility] [address] [facility], [place], [address], 03/20/2025 17:05:06 03/20/2003/20/2025 CBC monocytes % 6.5 % 2.0-16 .0 Not Available [facility] [address] [facility], [place], [address], 03/20/2025 17:05:06 03/20/2003/20/2025 CBC granulcytes# 7.5 x10 Not Purnima ilable [facility] [address] [facility], [place], [address], 03/20/2025 17:05:06 03/20/2003/20/2025 CBC lymphocytes # 3.2 x10 Not Available [facility] [address] [facility] 1, [place], [address], 03/20/2025 17:05:06 03/20/20 25 03/20/2025 CBC monocytes # 0.8 x10 Not Avai lable [facility] [address] [address], [place], [address], 03/20/2025 17:05:06 03/20/2003/20/2025 CMP (FEMA LE) glucose 103.0 mg/dL 60.0-9 9.0 high Not Available [facility] [address] [address], [place], [address], 03/20/2025 17:33:53 03/20/2003/20/2025 CMP (FEMA LE) BUN (blood urea nitrogen) 20.0 mg/dL 10.0-2 6.0 Not Available [facility] [address] [place] [address] [facility], [place], [address], 03/20/2025 17:33:53 03/20/2003/20/2025 CMP (FEMA LE) creatinine (serum) 0.9 mg/dL 0.4-1. 5 Not Available [facility] [address] [facility], [place], [address], 03/20/2025 17:33:53 03/20/20 25 03/20/2025 CMP (FEMA LE) BUN/creatini ne ratio 22.22 ratio Not Available [facility] [address] [facility], [place], [address], 03/20/2025 17:33:53 03/20/20 25 03/20/2025 CMP (FEMA LE) eGFR calculated 70.4 Not Available [facility] [address] [facility] 1, [place], [address], 03/20/2025 17:33:53 03/20/20 25 03/20/2025 CMP (FEMA LE) total protein 7.4 g/dL 6.0-8. 5 Not Available [facility] [address] [facility] 1, [place], [address], 03/20/2025 17:33:53 03/20/20 25 03/20/2025 CMP (FEMA LE) total bilirubin 0.6 mg/dL 0.2-1. 3 Not Available [facility] [address] [facility], [place], [address], 03/20/2025 17:33:53 03/20/20 25 03/20/2025 CMP (FEMA LE) albumin 4.3 g/dL 3.5-5. 5 Not Available [facility] [address] [facility] 1, [place], [address], 03/20/2025 17:33:53 03/20/20 25 03/20/2025 CMP (FEMA LE) globulin 3.1 calc Not Available [facility] [address] [facility], [place], [address], 03/20/2025 17:33:53 03/20/20 25 03/20/2025 CMP (FEMA LE) AST (SGOT) 23.0 U/L 0.0-46 .0 Not Available [facility] [address] [place] [facility], [place], [address], 03/20/2025 17:33:53 03/20/20 25 03/20/2025 CMP (FEMA LE) altv (SGPT) 21.0 U/L 13.0-6 9.0 normal Not Available [facility] [address] [facility] 1, [place], [address], 03/20/2025 17:33:53 03/20/20 25 03/20/2025 CMP (FEMA LE) A/G ratio 1.4 ratio Not Available [facility] [address] [facility] 1, [place], [address], 03/20/2025 17:33:53 03/20/20 25 03/20/2025 CMP (FEMA LE) ALP phos 88.0 U/L 30.0-1 40.0 normal Not Available [facility] [address] [facility] 1, [place], [address], 03/20/2025 17:33:53 03/20/20 25 03/20/2025 CMP (FEMA LE) calcium 9.3 mg/dL 8.4-10 .5 Not Available [facility] [address] [facility] 1, [place], [address], 03/20/2025 17:33:53 03/20/20 25 03/20/2025 CMP (FEMA LE) sodium 139.0 mmol/ L 136.0- 145.0 Not Available [facility] [address] [facility] 1, [place], [address], 03/20/2025 17:33:53 03/20/20 25 03/20/2025 CMP (FEMA LE) potassium 4.1 mmol/ L 3.5-5. 1 Not Available [facility] [address] [facility] 1, [place], [address], 03/20/2025 17:33:53 03/20/2003/20/2025 CMP (FEMA LE) chloride 104.0 mmol/ L 98.0-1 10.0 normal Not Available [facility] [address] [facility] 1, [place], [address], 03/20/2025 17:33:53 03/20/20 25 03/20/2025 CMP (FEMA LE) C02 29.0 mmol/ L 22.0-3 1.0 Not Available [facility] [address] [facility] 1, [place], [address], 03/20/2025 17:33:53 03/20/20 25 03/20/2025 CMP (FEMA LE) anion gap 6.0 calc Not Available [facility] [address] [facility] 1, [place], [address], 03/20/2025 17:33:53 03/20/2003/20/2025 CMP (FEMA LE) osmolality 289.8 calc Not Available [facility] [address] [facility] 1, [place], [address], 03/20/2025 17:33:53 03/20/20 25 03/21/2025 MAGNE SIUM magnesium 2.3 mg/dL 1.5-2. 5 normal Not Available [facility] [address] , [place], [address], 03/21/2025 05:40:44 04/05/2004/05/2025 COLOG UARD cologuard result reportable NEGATI [...] ant featu res) is prese nt. The [facility] e that a perso n with a [...] of ,00 0 indiv idual s at [facility] risk for color ectal cance r who were scree telma with both Colog uard and colon oscop y. (Anival Sterling et al, N Engl J Med 2014; 370(1 4):12 86-12 97) The north l value (refe rence range ) for this assay is negat bull. COLOG UARD RE-SC ALF [place] RECOM MENDA TION: Perio dic color ectal cance r scree loyd is an impor tant part of preve ntive healt hcare for asymp tomat ic indiv idual s at [place] risk for color ectal cance r. Follo wing a negat bull Colog uard resul t, the Ameri can Cance r Socie ty and U.S. Multi -Soci ety Task Force scree loyd guide lines recom mend a Colog uard re-sc alf ashford inter mell of 3 years . Refer ences : Ameri can Cance r Socie ty Guide line for Color ectal Cance r Scree loyd: https ://ww w.can cer.o rg/ca ncer/ colon -rect al-ca ncer/ detec tion- diagn osis- stagi ng/ac s-rec ommen datio ns.ht ml.; Aram DOWNING, Oscar BOUDREAUX, Kolton FERRER, Color ectal Cance r Scree loyd: Recom menda tions for Physi cians and Patie nts from the U.S. Multi -Soci ety Task Force on Color ectal Cance r Scree loyd , Am J Gastr oente rolog y 2017; 112:1 016-1 030. TEST DESCR IPTIO N: [place] site algor ithmi c connie sis of [...] years or older , who are at [facility] for color ectal cance r (CRC) . Colog uard has been appro arsh for use by the U.S. FDA. The perfo rmanc e of Colog uard was estab lishe d in a cross secti onal study of [facility] adult s aged 50-84 . Colog uard perfo rmanc e in patie nts ages 45 to 49 years was estim ated by sub-g roup connie sis of near- age group s. Colon oscop ies perfo rmed for a posit bull resul t may find as the most clini devin signi fican t lesio n: color ectal cance r [4.0% ], advan joann adeno ma (incl uding sessi le amy keagan polyp s great er than or equal to 1cm diame ter) [20%] or non- advan joann adeno ma [31%] ; or no color ectal neopl amanda [45%] . These estim ates are deriv ed from a prosp ectiv e cross -sect ional scree loyd study of ,00 0 indiv idual s at [facility] risk for color ectal cance r who [...] inter mell is every 3 years . (Bruna marks Cance r Socie ty and U.S. Multi -Soci ety Task Force ). Colog uard perfo rmanc e data in a 10,00 0 patie nt pivot al study using colon oscop y as the refer ence metho d can be acces sed at the follo wing locat ion: www.e xactl abs.c om/re sults . Addit ional descr iptio n of the Colog uard test proce ss, warni ngs and preca ution s can be found at www.c ologu adrienne.c om. Not Available [facility] [address], [place], [address], 04/10/2025 19:06:43 04/01/20 25 04/01/2025 MAMMO , scree loyd, digit al, bilat eral No observ ation record ed. [facility] [address] [place], [address], 04/30/2025 17:04:48 Result Notes None recorded. Problems Name Problem SNOMED Code Status Onset Date Resolution Date Notes Provider Name and Address Organization Details Recorded Time Acne 23497459 Completed 201809/05/2018 ADULT ACNE - Status is Inactive ; Recorded 09/06/19 19 9:09AM by Simi Galvez CMT, Alinaati on/Adden dum; Promoted ; acuity set as *; Not Available [facility] 3 03:10:30 Acute sinusiti s 35504720 Completed 201809/05/2018 ACUTE BACTERIA L RHINOSIN USITIS - Status is Inactive ; Recorded 09/06/19 19 9:09AM by Simi Galvez CMT, Alinaati on/Adden dum; Promoted ; acuity set as *; ACUTE SINUSITI S - Status is Inactive ; Recorded 12/12/19 15 7:35AM by Karoline Zheng LPN, Alinaati on/Adden dum; Promoted ; acuity set as *; ; Start Date : 12/12/19 15 Not Available [facility] 3 03:10:31 Bronchit is 14595310 Completed 201809/05/2018 BRONCHIT IS - Status is Inactive ; Recorded 09/06/19 19 9:09AM by Simi Galvez CMT, Annotati on/Adden dum; Promoted ; acuity set as *; Not Available [facility] 3 03:10:31 Allergic rhinitis 06926067 Completed 201809/05/2018 ALLERGIC RHINITIS - Status is Inactive ; Recorded 09/06/19 19 9:09AM by Simi Galvez CMT, Annotati on/Adden dum; Promoted ; acuity set as *; Not Available [facility] 3 03:10:31 Hemorrho ids 95919420 Active 2022 HEMORRHO IDS; Recorded 08/10/19 23 9:06AM by Leonor Cortez LPN, Office Visit; Promoted ; acuity set as *; SIMI esteban [facility] 4 16:22:08 Exacerba tion of intermit tent asthma 578213241 Active 2022 MILD INTERMIT TENT ASTHMA WITH ACUTE EXACERBA TION; Recorded 08/10/19 23 9:06AM by Leonor Cortez LPN, Office Visit; Promoted ; acuity set as *; SIMI esteban [facility] 4 16:21:59 [facility] hyperten fernanda 02377023 Active 2023 SIMI esteban [facility] 4 16:24:16 Hyperlip idemia 16566781 Active 2023 SIMI esteban [facility] 4 16:26:20 Gastroes ophageal reflux disease 001166066 Active 2023 SIMI esteban [facility] 4 16:26:30 Muscle spasm of cervical muscle of neck 83879084281 4 Active 2024 Gilmer Gusman MD [address] [place], [address] , [facility] L.L.CJaswinder 10:03:52 Problem Notes None recorded. Procedures Surgical History Date Name Laterality Status Provider Name and Address Organization Details Recorded Time 06/14/20 25 plain X-ray of chest completed [facility] 06/18/2025 15:01:14 04/05/20 25 screening for malignant neoplasm of colon completed [facility] 04/16/2025 19:30:35 04/01/20 25 screening mammography completed [facility] 04/02/2025 16:57:44 03/29/20 24 screening mammography completed [facility] 04/06/2024 10:03:25 02/01/20 23 mammography completed [facility] 02/08/2023 13:15:13 08/25/19 22 plain X-ray of chest completed [facility] 12/20/2023 16:27:41 02/11/20 21 screening for malignant neoplasm of colon completed [facility] 12/20/2023 16:38:16 07/04/19 09 Hysterectomy completed JOSE MIGUEL LEDBETTER [address] [place], [address], [facility] 12/26/2024 13:45:06 Cholecystectomy completed [facility] 12/07/2022 19:08:56 Imaging Results None recorded. Procedure Notes None recorded. Medical Equipment None Reported. Allergies Allergen ID Allergen Name Allergen Category Reaction Reaction Severity Criticality Documentation Date Start Date Code Code System Note Provider Name and Address Organization Details Recorded Time 80801 trivalent influenza vaccine medicatio n anaphylax is Not available Not available 01/29/2023 30927 9 RxNorm SIMI LEONOR esteban [facility].L.CJaswinder 4 16:21:29 29001 diphenhyd ramine / pseudoeph edrine medicatio n Not available Not available Not available 01/29/2023 90326 2 RxNorm [facility] 4 16:21:03 81068 penicilli n V potassium medicatio n hives itching swelling severe severe severe Not available 01/29/202364975 5 RxNorm SIMI GALVEZ [facility] 4 16:21:42 4004 Vaccine product containin g only influenza virus antigen (medicina l product) medicatio n anaphylax is severe Not available 12/07/20222003 86368 93086 105 SNOMED BRADLEY SOFIA, [address], [address] , [facility] 5 10:28:09 4005 Tylenol medicatio n itching rash severe severe Not available 12/07/202229560 3 RxNorm SIMI esteban [facility] 3 19:06:27 4006 Compazine medicatio n other severe Not available 12/07/202250016 6 RxNorm [facility] 3 19:06:38 4007 Product containin g penicilli n (product) medicatio n Not available Not available Not available 12/07/2022 88225 8001 SNOMED [facility]UNI [facility] 3 11:43:27 4008 cephalexi n medicatio n Not available Not available Not available 12/07/2022 2231 RxNorm SIMI GALVEZ [facility], [facility] 3 19:06:59 4009 chlorphen iramine / phenyleph rine medicatio n Not available Not available Not available 12/07/2022 15093 3 RxNorm BRADLEY SOFIA, [facility] [address] [place], [address], [facility], LJaswinderLLinda. 5 10:28:09 16555 morphine medicatio n dizziness hives vomiting severe severe severe Not available 05/14/2025 7052 RxNorm BRADLEY SOFIA, [facility] [address] [place], [address], [facility], LJaswinderLJaswinderC. 5 10:28:09 Medications Name Sig Start Date [...] two times daily 02/17 completed Recorded 05/22/20 2:44PM by JOSE MIGUEL Restrepo, Office Visit; [...] Address Organization Details Last Updated DateTime 5 171.45 cm 50.6 kg/m2 448715. 3 g 95 % 90 /min 20 /min 148/88 mm[Hg] [facility] 5 16:01:16 Date Recorded Body height Body mass index (BMI) Body weight Oxygen saturation Heart rate Respiratory rate Systolic And Diastolic Provider Name and Address Organization Details Last Updated DateTime 5 171.45 cm 51.1 kg/m2 851972. 07 g 96 % 86 /min 20 /min 138/88 mm[Hg] [facility] 5 16:30:15 Date Recorded Body height Body mass index (BMI) Body weight Oxygen saturation Heart rate Respiratory rate Systolic And Diastolic Provider Name and Address Organization Details Last Updated DateTime 5 170.18 cm 52.6 kg/m2 450195. 04 g 98 % 88 /min 20 /min 138/82 mm[Hg] [facility] 5 09:59:16 Date Recorded Body height Body mass index (BMI) Body weight Oxygen saturation Heart rate Respiratory rate Systolic And Diastolic Provider Name and Address Organization Details Last Updated DateTime 5 170.18 cm 51.8 kg/m2 563481. 07 g 97 % 82 /min 20 /min 128/76 mm[Hg] [facility] 5 15:33:10 Date Recorded Body height Body mass index (BMI) Body weight Body temperature Heart rate Oxygen saturation Systolic And Diastolic Provider Name and Address Organization Details Last Updated DateTime 5 170.18 cm 52 kg/m2 706103. 67 g 98.6 [degF] 82 /min 98 % 142/76 mm[Hg] Ame Gilliam [facility] 5 09:36:29 Social History Question Answer Notes LastModified by [email or web address] Details LastModified Time Tobacco Smoking Status Never Smoker [facility] 12/07/2022 19:08:20 What Was The Date Of Your Most Recent Tobacco Screening? 06/14/2025 [email or web address] Information not available 06/14/2025 What Is Your Relationship Status? Information not available 12/07/2022 Sex: Unknown Functional Status Question Answer Note LastModified by [email or web address] Details LastModified Time Do you use any illicit or recreational drugs? No Information not available 12/07/2022 What is your level of alcohol consumption? None [email or web address] Information not available 12/07/2022 Are you able to care for yourself independently? Yes [email or web address] Information not available 12/07/2022 Mental Status None recorded. Family History Relationship Description Onset Age of this Age Resolved Age Notes LastModified by Organization Details LastModified Time Maternal Grandmother Malignant neoplasm of lung Not available 2024 10:28:04 Maternal Grandmother Type 2 diabetes mellitus Not available 2024 10:28:04 Maternal Grandmother Essential hypertension 65 84 Not available 05/2025 10:28:04 Mother Type 2 diabetes mellitus [email or web address] Not available 12/19 16:25:31 Mother Essential hypertension [email or web address] Not available 16:25:49 Maternal Grandfather Malignant neoplasm [...] Details Recorded Time Tdap 5 completed [facility] 03/20/2025 16:45:08 Tdap 3 completed BRADLEY SOFIA [address], [address], [facility] 12/08/2022 10:52:59 Td (adult), 2 Lf tetanus toxoid, preservative free, adsorbed [address], [address], [facility] 12/08/2022 10:52:59 Hep B, adult 1 leisa SOFIA [facility] [address] [place], [address], [facility] 12/08/2022 10:52:59 Hep B, adult 0 completed BRADLEY SOFIA [facility] [place], [address], [facility] 12/08/2022 10:52:59 Hep B, adult 0 completed BRADLEY SOFIA [address], [address], [facility] [facility] 12/08/2022 10:52:59 Hep A, adult 6 completed BRADLEY SOFIA [address], [address], [facility] 12/08/2022 10:52:59 Hep A, adult 5 completed BRADLEY SOFIA [address], [address], [facility] 12/08/2022 10:52:59 Influenza, split virus, trivalent, preservative 3 completed Not Available [facility] 06/29/2023 08:19:01 Influenza, split virus, trivalent, preservative 7 completed Not Available [facility] 06/29/2023 08:19:01 Past Encounters Encounter ID Performer Location Encounter Start Date Encounter Closed Date Diagnosis/Indication Diagnosis SNOMED-CT Code Diagnosis ICD10 Code Diagnosis IMO Codes Diagnosis Note [id number] JOSE MIGUEL LEDBETTER [facility] ([facility]) [address] [place] [address] 12/08/2022 09:58:06 12/08/2022 11:11:37 Changing shape of pigmented skin lesion 353417455 L98.8 [id number] JOSE MIGUEL LEDBETTER [facility] ([facility]) [address] [place] [address] 02/17/2023 11:11:27 02/17/2023 13:48:11 Essential hypertension 17681442 I10 Doing well on medication . Recent labs done with wellness at work. [id number] MANPREET BRUCE [facility] ([facility]) [address] [place] [address] 04/05/2023 17:55:01 04/05/2023 19:08:44 Pain of left knee joint 9528472190 20076 M25.562 Will send x-ray for over read. Patient has hinged knee brace at home. Should wear knee brace for 1 week and weight bear as tolerated. RICE treatment recommende d. Can take tylenol/ib uprofen as needed for pain. Will follow up pending x-ray results. Patient is agreeable to plan of care. If ortho referral is needed, would like to see Dr. Poole at [facility] in [place]. [id number] JOSE MIGUEL LEDBETTER [facility] ([facility]) [address] [place] [address] 05/24/2023 16:13:36 05/24/2023 18:06:42 Acute maxillary sinusitis 81527982 J01.00 [id number] [facility]) [address] [place] [address] 06/29/2023 08:17:00 06/29/2023 09:25:37 Acute suppurative otitis media without spontaneous rupture of ear drum 56154118 H66.002 StartZ-pac k and ciprodex today. Encouraged tylenol/ib uprofen as needed for pain. Recommend pushing fluids and using cool mist humidifier at night. Recommend a 2 week follow up with PCP for ear re-check. If worsening condition, or no improvemen t in 5-7 days, return for further evaluation . Patient verbalizes understand ing. [id number] JOSE MIGUEL ANGELES [facility] ([facility]) [address] [place] [address] 11/07/2023 09:27:22 11/07/2023 10:33:58 [id number] JOSE MIGUEL LEDBETTER [facility] ([facility]) [address] [place] [address] 12/21/2023 09:38:42 12/21/2023 11:17:10 Adult health examination 227608791 Z00.00 Hyperglycemia 47173570 R 73.9 Essential hypertension 29078977 I10 Doing well on medication . Recent labs done with wellness at work. Dizziness and giddiness 982313806 R42 Continue Meclizine as needed. [id number] JOSE MIGUEL ANGELES [facility] ([facility]) [address] [place], [place] [address] 01/27/2024 15:40:42 01/27/2024 17:05:58 Infected insect bite 104523425 L08.9 Discussed use of warm compress. Do NOT poke/squee ze the area.Use topicals as directed.R eturn if you develop increased redness, pain or concerns. [id number] Gilmer Gusman MD [facility] ([facility]) [address] [place], [place] [address] 11/15/2024 09:31:24 11/19/2024 10:11:12 Muscle spasm of cervical muscle of neck 2740474959 04 M62.134 [id number] Neck spasm this is contributi ng to the patient's pain. Will start baclofen to see if it improves her symptoms. Discussed daily stretching and warm moist heat. [id number] BRADLEY SOFIA CHOKER SETTER [facility] ([facility]) [address] [place], [place] [address] 12/19/2024 15:22:54 12/19/2024 17:53:04 Muscle spasm of cervical muscle of neck 9425022253 04 M62.877 [id number] Improving with muscle relaxer. Essential hypertension 25326175 I10 Physical examination 588 0005 Z00.00 [id number] [id number] CHRISSY SABILLON CHOKER SETTER [facility] ([facility]) [address] [place], [place] [address] 02/08/2025 13:09:33 02/08/2025 17:26:27 Acute diarrhea 363968586 R19.7 [id number] Will start flagyl since diarrhea has persisted for 6 days. if not resolved or symptoms then return for stool sample testing. [id number] BRADLEY SOFIA [facility] ([facility]) [address] [place], [place] [address] 03/20/2025 15:35:46 03/20/2025 16:38:05 Gastroesophageal reflux disease without esophagitis 235297700 K21.9 359747 Candidiasis of skin 4988 3006 B37.2 8220428 Screening for malignant neoplasm of colon 347295926 Z12.11 214341 Requires d iphtheria, tetanus and pertussis vaccination 931103153 Z23 969163 [id number] BRADLEY SOFIA [facility] ([facility]) [address] [place] [address] 5 04/30/2025 15:35:49 05/01/2025 11:39:02 Bacterial sinusitis 438602176 J32.9 B96.89 [id number] BRADLEY SOFIA [facility] ([facility]) [address] [place] [address] 5 05/14/2025 09:35:12 05/14/2025 10:45:18 Gastroesophageal reflux disease 274205913 K21.9 Pantoprazo le as needed now. Bacterial sinusitis 7034 05994 J32.9 B96.89 5797763 [id number] BRADLEY SOFIA [facility] ([facility]) [address] [place], [place] [address] 05/22/2025 14:56:42 05/22/2025 16:30:54 Bronchitis 49802402 J40 19403 [id number] SAMMIE NUNN APRN [facility] ([facility]) [address] [place] [address] 5 06/14/2025 09:25:45 06/14/2025 10:07:56 Bacterial sinusitis 425873264 J32.9 B96.89 [id number] Health Concerns Section Related Observation LastModified by Organization Detai ls LastModified Time None Recorded Concern Status LastModified by Organization Details LastModified Time None Recorded Advance Directives Directive None Recorded Payers Insurance Date Sequence Insurance Name Policy Number Policy Payton Covered Member ID Payton Member ID Guarantor Name 01/27/2024 1 [facility] Karoline Gaines [id number] Karoline Galss Eder 06/21/2025 1 [place] [id number] Cam Gaines [id number] Karoline Glass Eder Notes Date Note Type Note Provider Name and Address Organization Details Recorded Time 5 text/html General Rash/Skin LesionReported by PatientHPIFor quality, patient reportspainfulandred. For aggravating factors, patient reportsexercise. For associated symptoms, patient reportsobesity. For location, patient reportsabdomenandgroin. For severity, patient reportsmoderateandworsening . BRADLEY SOFIA [address], [address], [facility] 03/21/2025 13:45:07 5 text/html Sinusitis/AllergyReported by PatientHPIFor quality, patient reportsdull,congested, andthrobbing. For location, patient reportsfrontal. BRADLEY SOFIA [address], [address], [facility] 04/30/2025 17:16:29 5 text/html Reflux/GERDReported by PatientHPIFor severity, patient reportsimproving. For context, patient reportsnon-smoker. Ear Pain Brief HPIReported by PatientHPIFor location, patient reportsbilateral. BRADLEY SOFIA [address], [address], [facility] 05/14/2025 10:38:37 5 text/html Sinusitis/AllergyReported by PatientHPIFor quality, patient reportsdull,congested, andthrobbing. For location, patient reportsfrontal. BRADLEY SOFIA [address], [address], [facility] 05/22/2025 16:28:46 5 text/html walk in ptPt is having sinus drainage, knot behind left ear, chest/nasal congestion and cough for 2 months. Pt has been antibiotics three time in the last 2 months. SAMMIE NUNN, BLOCK LAYER [address] [place], [address], [facility], [place] 06/14/2025 09:59:20 OBGyn Episode No OBEpisode recorded.
--- NOTE | 2025-06-21 14:21 | XR_ITS ---
WS: [id number] Portable AP upright chest, 06/21/2025 Clinical Data: chest pain Comparison: Portable chest, 06/14/2025 Findings: No nodules, masses or effusions are seen. The heart is normal. The pulmonary vascularity is not increased. No pneumonia or pneumothorax is seen. Monitor leads are on the chest wall. XR/XR chest 1V portable 13938 Impression: Negative chest.
--- NOTE | 2025-06-21 14:21 | ECG_ITS ---
[facility] Date: 2025-06-21 Pat Name: Karoline Gaines Department: Room: Gender: Female Chief Medical Director: : 1975 Requested By: Conor Cruz Order Number: [id number] Reading MD: Measurements Intervals [place] Rate: 93 P: 35 ND: 162 QRS: 11 QRSD: 111 T: 33 QT: 354 QTc: 442 Interpretive Statements SINUS RHYTHM INCOMPLETE RIGHT BUNDLE BRANCH BLOCK [90+ ms QRS DURATION, TERMINAL R IN V1/V2, 40+ ms S IN I/aVL/V4/V5/V6] No previous ECG available for comparison [email or web address] [id number]
--- NOTE | 2025-06-21 14:45 | W.ED.CHESTPA ---
HPI - Chest Pain General: Chief Complaint: Chest Pain Stated Complaint: CP going down L arm Time Seen by Provider: 06/21/25 14:20 History of Present Illness: 50-year-old female presents to the emergency room with a complaint of chest discomfort and left arm pain that happens intermittently began today while she was at rest. She had a week ago she was seen in the emergency room after that their workup was negative she was discharged home on baby aspirin daily. She had another episode today while she was sitting at her desk at rest she relates chest discomfort with pain radiating into her left arm the last for a couple of seconds at a time and be intermittent. No fever sweats chills or cough. Associated symptoms: Deny abdominal pain, dyspnea or fever(s) Related Data Home Medications ?Medication ?Instructions ?Recorded ?Confirmed cetirizine 10 mg tablet (Zyrtec) 10 mg PO QAM 11/07/23 11/07/23 lisinopril 20 1 tab PO QAM 11/07/23 11/07/23 mg-hydrochlorothiazide 25 mg tablet multivitamin 1 tab PO QAM 11/07/23 11/07/23 Previous Rx's ?Medication ?Instructions ?Recorded meclizine 25 mg tablet 25 mg PO QID PRN dizziness #20 tabs 11/07/23 methylprednisolone 4 mg tablets in See Rx Instructions PO .COMPLEX 06/21/25 a dose pack (Medrol (Juan Pablo)) #21 ea Allergies Allergy/AdvReac Type Severity Reaction Status Date / Time acetaminophen (From Tylenol) Allergy ALGY-Hives Verified 06/14/25 15:46 Cephalosporins Allergy Unknown Verified 11/07/23 08:58 morphine Allergy ADR-Vomitin Verified 11/07/23 08:56 g Penicillins Allergy Unknown Verified 11/07/23 10:34 Review of Systems Const: Denies: fever(s) or chills Card: Reports: chest pain Resp: Denies: dyspnea GI: Denies: abdominal pain : Denies: dysuria, urinary frequency or urinary urgency Musc: Denies: neck pain or back pain Skin/Breast: Denies: rash PFSH ED PFSH: Social History Smoking and tobacco/nicotine status: never used tobacco/nicotine Physical Exam Const: COMMON NORMALS: no acute distress GENERAL APPEARANCE: cooperative and comfortable ORIENTATION/CONSCIOUSNESS: Yes awake, Yes oriented to person, Yes oriented to place and Yes oriented to time HENMT: COMMON NORMALS: normocephalic, atraumatic and hearing grossly normal bilaterally HEAD & SCALP: normocephalic and atraumatic Resp: COMMON NORMALS: normal respiratory effort, No retractions, No use of accessory muscles and clear to auscultation bilaterally AUSCULTATION: clear to auscultation bilaterally Cardio: COMMON NORMALS: regular rate, regular rhythm and No murmurs present (Cardio) RATE: regular rate RHYTHM: regular rhythm GI: COMMON NORMALS: Soft to palpation and No hepatosplenomegaly present AUSCULTATION: Yes normoactive bowel sounds PALPATION: Yes Soft to palpation, No Tenderness to palpation present (GI), No Guarding due to palpation present (GI) and Yes No hepatosplenomegaly present Extremity: COMMON NORMALS: normal to inspection, capillary refill normal, no clubbing, cyanosis or edema, no calf tenderness and no pedal edema Neuro: SENSORIUM/ORIENTATION: Yes oriented to person, Yes oriented to place and Yes oriented to time Skin: COMMON NORMALS: no rashes or lesions noted GENERAL SKIN EXAM: no rashes or lesions noted Course Vital Signs: Vital signs: Vital Signs Temperature 97.4 F L 06/21/25 13:45 Pulse Rate 85 06/21/25 16:46 Respiratory Rate 18 06/21/25 16:46 Blood Pressure 154/81 06/21/25 16:46 Pulse Oximetry 95 06/21/25 16:46 Oxygen Delivery Me thod Room Air 06/21/25 16:00 MDM - Chest Pain Medical Decision Making Medical decision making Social determinants: None I reviewed the patient's medical record. I reviewed the patient's current home meds. Alternate historians: None Differential diagnosis: Musculoskeletal chest wall pain, ACS, pneumonia Lab Review: Labs reviewed white count 13,000 hemoglobin normal platelets normal. Chemistries unremarkable troponin baseline 10-second troponin 6.4 negative delta Imaging:Chest x-ray no cardiomegaly no effusions no infiltrates no acute findings Assessment of risk Level of risk: Low to moderate Hospitalization considerations: Evaluation for acute coronary syndrome less likely to require hospitalization Reexamination: Pain resolved Assessment and plan: Pain worse with lifting activity somewhat reproducible with palpation cardiac enzymes do not show any elevation. EKGs without significant change. No hypoxia or tachypnea no indication of pulmonary embolism no pneumonia on chest x-ray. Reviewed findings with the patient discharge home. Some of her symptoms seem to be more suggestive of a cervical radiculopathy she has more pain in her arm radiating down from the neck. Recommend she follow-up with her primary care doctor may need further evaluation including advanced imaging. Will put her on a steroid taper. Lab Data 06/21/25 14:46 06/21/25 14:46 Radiology Impressions Chest X-Ray 06/21/25 14:21 Impression: Negative chest. Laboratory Results WBC 13.05 10^3/uL (3.29-11.43) H 06/21/25 14:46 RBC 4.96 10^6/uL (3.85-5.65) 06/21/25 14:46 Hgb 13.50 g/dL (11.27-16.99) 06/21/25 14:46 Hct 41.6 % (36-47) 06/21/25 14:46 MCV 83.9 fl (85-98) L 06/21/25 14:46 MCH 27.2 pg (27-33) 06/21/25 14:46 MCHC 32.5 g/dL (30-55) 06/21/25 14:46 RDW 14.0 % (12.1-15.1) 06/21/25 14:46 Plt Count 287 10^3/cmm (157-399) 06/21/25 14:46 MPV 9.6 fL (7.4-10.4) 06/21/25 14:46 Neut % (Auto) 68.1 % 06/21/25 14:46 Lymph % (Auto) 22.8 % 06/21/25 14:46 [place] % (Auto) 5.4 % 06/21/25 14:46 Eos % (Auto) 2.8 % 06/21/25 14:46 Baso % (Auto) 0.5 % 06/21/25 14:46 Neut # (Auto) 8.90 10^3/uL (1.8-7.7) H 06/21/25 14:46 Lymph # (Auto) 3.0 10^3/uL (0.8-4.8) 06/21/25 14:46 [place] # (Auto) 0.7 10^3/uL (0.2-0.9) 06/21/25 14:46 Eos # (Auto) 0.4 10^3/uL (0.0-0.8) 06/21/25 14:46 Baso # (Auto) 0.1 10^3/uL (0.0-0.1) 06/21/25 14:46 Nucleated RBC % (auto) 0 % 06/21/25 14:46 Nucleated RBCs # 0.0 /100WBC 06/21/25 14:46 Sodium 137 mmol/L (136-145) 06/21/25 14:46 Potassium 3.6 mmol/L (3.5-5.1) 06/21/25 14:46 Chloride 99 mmol/L (98-107) 06/21/25 14:46 Carbon Dioxide 27 mmol/L (22-29) 06/21/25 14:46 Anion Gap 14.6 (5-19) 06/21/25 14:46 BUN 14 mg/dL (6-20) 06/21/25 14:46 Creatinine 0.7 mg/dL (0.5-0.9) 06/21/25 14:46 GFR Calculation 88.6 mL/min (90-130) L 06/21/25 14:46 Glucose 92 mg/dL (65-115) 06/21/25 14:46 Calculated Osmolality 284 mOsm/kg (285-295) L 06/21/25 14:46 Calcium 9.3 mg/dL (8.5-10.5) 06/21/25 14:46 Total Bilirubin 0.4 mg/dL (0.15-1.2) 06/21/25 14:46 AST 13 U/L (0-32) 06/21/25 14:46 ALT 16 U/L (0-33) 06/21/25 14:46 Alkaline Phosphatase 104 U/L (35-105) 06/21/25 14:46 Troponin T Baseline 10 ng/L (0-10) 06/21/25 14:46 Troponin T 60 Minute 6.64 ng/L (0-10) 06/21/25 15:39 Delta Troponin T -3.36 ABS# (0-10) L 06/21/25 15:39 Total Protein 6.5 g/dL (6.6-8.7) L 06/21/25 14:46 Albumin 4.3 g/dL (3.5-5.2) 06/21/25 14:46 Globulin 2.2 g/dL (1.3-4.6) 06/21/25 14:46 All radiology interpretation(s) finalized by discharge EKG Data EKG 1: I personally reviewed and interpreted this EKG as follows: Interpretation: EKG 06/21/2025 1351 sinus rhythm incomplete bundle branch block reticular rate 93. [place] 162 QTc [address] changes noted Compared to EKG 06/14/2025 no significant change EKG 2: I personally reviewed and interpreted this EKG as follows: Interpretation: EKG 06/21/2025 1526 sinus rhythm rate of 83 VA interval 140 QTc [address] changes no change from previous EKG Discharge Plan Discharge Patient Disposition: Home Clinical Impression: Atypical chest pain, Cervical radiculopathy Condition: Stable Prescriptions: New methylprednisolone [Medrol (Juan Pablo)] 4 mg tablets,dose pack See Rx Instructions .ROUTE .COMPLEX Qty: 21 0RF Rx Instructions: orally per package directions No Action multivitamin Tablet 1 tab PO QAM Zyrtec 10 mg Tablet 10 mg PO QAM lisinopril-hydrochlorothiazide 20-25 mg tablet 1 tab PO QAM meclizine 25 mg tablet 25 mg PO QID PRN (Reason: dizziness) Qty: 20 0RF Discharge Orders: Discharge ED (Routine); Ordered 06/21/25 Ordered By: Conor Hope Referrals: Justyna Jackson FNP [Primary Care Provider, Unknown] Discharge Diet: Usual diet Discharge Activity: Resume usual activity Patient Instructions: Opioid Safety, Pain Management, Patient Portal & Tala Instructions Activity Restrictions/Additional Instructions: Thank you for choosing [facility] for your healthcare needs today. It is very important that you follow up as instructed or that you return to the Emergency Department should you have concerns or if your condition changes or worsens in any way. Emergency department visits are focused on emergent conditions, in some cases you may require further evaluation on an outpatient basis. You were seen in the emergency room with complaints of chest pain and pain to your left arm. Your cardiac enzymes and EKG did not show any significant abnormality. Based on your description of symptoms suspect that you may have a irritation of a nerve in the neck and is causing the pain radiating to the arm. Follow-up with your primary care doctor if this persist you may need further evaluation including possible advanced imaging. You are given steroid taper dose to help with the discomfort. (Please note that included in your discharge packet is information concerning opioid safety and pain management. This information is given to all patients were discharged from the ER regardless of their discharge diagnosis or the medicines they usually take or are prescribed.) Print Language: [place] Coding Level of Care Code ED Psychology Instructor for Chg Fwd Heart Score HEART Score Components History: Slightly Suspicous EKG: Normal Age: 45-64 yrs Risk Factors: 1 or 2 Risk Factors Troponin: Baseline Trop <16 ng/L HEART Score RESULT HEART Score: 2
[2025-06-21 14:59] LABS: Hematocrit 41.6 % (36-47); Hemoglobin 13.50 g/dL (11.27-16.99); Mean Corpuscular HGB Conc 32.5 g/dL (30-55); Mean Corpuscular Hemoglobin 27.2 pg (27-33); Mean Corpuscular Volume 83.9 fl (85-98); Nucleated Red Blood Cells % 0 %; Platelet Count 287 10^3/cmm (157-399); Red Blood Count 4.96 10^6/uL (3.85-5.65); White Blood Count 13.05 10^3/uL (3.29-11.43)
[2025-06-21 15:13] LABS: Troponin(5th) Baseline 10 ng/L (0-10)
[2025-06-21 15:14] LABS: Alanine Aminotransferase 16 U/L (0-33); Albumin Level 4.3 g/dL (3.5-5.2); Alkaline Phosphatase 104 U/L (35-105); Anion Gap 14.6 (5-19); Aspartate Amino Transferase 13 U/L (0-32); Blood Urea Nitrogen 14 mg/dL (6-20); Calcium 9.3 mg/dL (8.5-10.5); Carbon Dioxide 27 mmol/L (22-29); Chloride 99 mmol/L (98-107); Globulin 2.2 g/dL (1.3-4.6); Glucose 92 mg/dL (65-115); Osmolality Calculated 284 mOsm/kg (285-295); Potassium 3.6 mmol/L (3.5-5.1); Sodium 137 mmol/L (136-145); Total Protein 6.5 g/dL (6.6-8.7)
--- NOTE | 2025-06-21 15:21 | ECG_ITS ---
[facility]25[facility] Pat Name: Karoline Gaines Department: Room: Gender: Female Lead Driver: : 1975 Requested By: Conor Cruz Order Number: [id number] Reading MD: Measurements Intervals [place] Rate: 83 P: 21 VT: 140 QRS: 8 QRSD: 106 T: 30 QT: 378 QTc: 446 Interpretive Statements SINUS RHYTHM [email or web address] [id number]
[2025-06-21 15:30] VITALS: BP 149/82; PULSE 87; O2SAT 97
[2025-06-21 16:00] VITALS: BP 146/78; PULSE 80; O2SAT 95
[2025-06-21 16:46] VITALS: BP 154/81; PULSE 85; RESP 18; O2SAT 95
== END 2025-06-21 16:44 | disposition home or self-care (01) ==
PROVIDERS: Emergency Provider Family Medicine; PCP Nurse Practitioner Family
DX: R07.89 Other chest pain (principal); M54.12 Radiculopathy, cervical region
CPT/HCPCS: 36415; 71045; 80053; 84484; 85025; 93005; 99285; J9999

== ENCOUNTER 2025-07-02 07:20 | Outpatient (CLI) | payer BC, SELFPAY ==
--- NOTE | 2025-07-02 | ECG_ITS ---
[facility]: 2025-07-02 Pat Name: Karoline Gaines Department: Room: Gender: Female Shade Hanger: : 1975 Requested By: Justyna Jackson Order Number: [id number] Ayan MD: RICHARD INGRAM Interpretive Statements Lung unchanged pre/post procedure; Intraprocedure shortess of breath; Symptoms resoled by discharge NOTE: Please note that this is the electrocardiogram portion of the Lexiscan/Sestamibi stress test. The perfusion scan will be documented separately. DATA: Baseline heart rate was 85 beats per minute. Baseline blood pressure was 125/77 millimeters of mercury. Target heart rate was 170. Maximum heart rate achieved was 110. which was 64 % of the predicted target heart rate. Maximum blood pressure was 137/87 millimeters of mercury. The reason for ending the test was completion of the protocol. The patient did not experience any symptoms. ELECTROCARDIOGRAM: BASELINE: Sinus rhythm. Normal axis. Poor R wave progression in the anteroseptal leads, otherwise, no ST-T changes suggestive of ischemia noted. No arrhythmia noted. EXERCISE: After Lexiscan injection, no ST-T changes suggestive of ischemic noted. No arrhythmia noted. CONCLUSION: Please note due to baseline abnormality of the EKG specificity and sensitivity of the EKG portion of LexiScan MIBI stress test will be low 1. EKG not suggestive of ischemia 2. Lexiscan injection unremarkable. 3. Perfusion scan will be documented separately. Electronically Signed On 07-04-2025 15:38:38 RAIL MANAGER by RICHARD INGRAM [id number]
[2025-07-02 07:44] VITALS: BMI 49.6
--- NOTE | 2025-07-02 07:56 | NMCV_ITS ---
NM baudilio perf SPECT r/s* [id number] Karoline Gaines Age: 50 Gender: F : 1975 Exam Date: 07/02/2025 08:16 Ordering Phys: Justyna JacksonP SPECIAL EDUCATION CURRICULUM SPECIALIST Technologist: CRISTHIAN Coker Exam Location: [facility] Indications: cp STRESS TEST Please [facility] IMAGE PROTOCOL Rest/Stress 2 Lexiscan Day Radiopharmaceutical Dose (mCi) Administration Site Administered by Rest: Tc-99m 10.7 IV Alysha Matthews, ATTORNEY RECRUITER Sestamibi Stress:Tc-99m 32.5 IV Alysha Byron, ATTORNEY RECRUITER Sestamibi Rest: 25-Jun-2025 60 Discovery 630 Stress: 02-Jul-2025 Discovery 630 0.4mg Lexiscan. Images obtained in supine and prone position. SPECT RESULTS Technical Quality: Good Raw Data Analysis: Normal Image Corrections: No attenuation or motion correction applied Summed Stress Score: 1 Summed Rest Score: 13 Summed Difference Score: 0 PERFUSION FINDINGS Large area of fixed perfusion defect noted in basal to mid anterior and basal to distal inferior and inferolateral lateral wall. No reversibility noted. FUNCTIONAL RESULTS (calculated via Gated SPECT) Stress Image LV EF (%): 71 Stress EDV (mL):108 TID: 0.81 Stress ESV (mL):31 FUNCTIONAL FINDINGS: There is normal left ventricular systolic function. 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 This study is not significant for ischemia Curtis Meza MD (Electronically Signed) Final Date: 02 July 2025 14:08 S
[2025-07-02 08:27] VITALS: BP 138/61; PULSE 86
== END 2025-07-02 07:21 | disposition home or self-care (01) ==
LOC: CDL 07:22
PROVIDERS: PCP Nurse Practitioner Family; Visit Provider Nurse Practitioner Family
DX: R07.9 Chest pain, unspecified (principal); I25.2 Old myocardial infarction
CPT/HCPCS: 36415; 78452; 93017; 96374; A9500; J2785